=== PATIENT | female | born 1965 | race Asian ===

== ENCOUNTER 2025-01-11 05:17 | Inpatient (IN) | payer BC, SELFPAY ==
[2024-12-18 08:13] VITALS: BMI 28.6
[2024-12-18 08:59] LABS: Hematocrit 38.2 % (37.0-47.0); Hemoglobin 12.9 g/dL (12.0-16.0); Mean Corp Hgb Conc. 33.8 g/dL (33.0-37.0); Mean Corpuscular Volume 84.5 fL (81.0-99.0); Nucleated Red Blood Cells % 0 %; Platelet Count 249 10^3/uL (130-400); Red Cell Dist. Width 13.8 % (11.5-14.5)
[2024-12-18 09:07] LABS: INR 2.70; PT 28.7 Sec (11.4-14.6)
[2024-12-18 09:13] LABS: Urine Character Clear (Clear)
--- NOTE | 2024-12-18 09:33 | CM ---
Met with and Mrs. Talbert in [facility]. She states prior to admission she resides with her spouse in a three story home without any steps to enter. She states she has a full flight of steps to get to bedroom/full bathroom. She states she has a
powder room on the first floor. She states prior to admission she was independent with ambulation and adls. She state she does not have any DME in the home. She states she has a prescription plan and uses [facility]. The
discharge plan is to return home with her spouse and a home visit by the Transitional Care Nurse when medically stable.
We reviewed pre-op and post-op routines. We reviewed the shower instructions. She has the soap, written instructions and the Cardiothoracic Surgery Educational Booklet. We reviewed restrictions including lifting and driving restrictions. We
discussed a home visit by the Transitional Care Nurse. She is agreeable to a home visit. The plan is for minimally invasive mitral valve replacement on Wednesday, December 25, 2024.
[2024-12-18 09:56] LABS: ALT (SGPT) 69 U/L (0-35); AST (SGOT) 46 U/L (14-36); Albumin 4.2 g/dl (3.5-5.0); Alkaline Phosphatase 84 U/L (38-126); Blood Urea Nitrogen 19 mg/dl (7-17); Calcium 9.1 mg/dl (8.4-10.2); Carbon Dioxide 28 mmol/L (22-30); Chloride 109 mmol/L (98-107); Estimated Creatinine Clearance 64 ml/min; Glucose 86 mg/dl (70-99); Potassium 3.7 mmol/L (3.5-5.1); Sodium 146 mmol/L (135-145); Total Protein 7.0 g/dl (6.3-8.2); eGFR > 60.00
[2024-12-18 10:02] LABS: Urine Squamous Cell 16-20 /LPF (Few)
[2024-12-18 10:07] LABS: Urine Red Blood Cell 0-2 /HPF (0-2)
[2024-12-18 10:08] LABS: Urine White Cell 0-2 /HPF (0-5)
[2024-12-18 11:35] LABS: Glycohemoglobin (HgbA1c) 5.7 % (4.0-5.6)
--- NOTE | 2024-12-24 14:42 | OID.L.PAT ---
Pulmonary Nodule Pat Letter
- -
12/24/24
KUMAR MALDONADO
[address] [facility]
[place] [id number]
Emmy HEATH,
A pulmonary nodule was seen on an imaging study done by [facility]. This was reviewed by the [facility] Pulmonary Nodule Advisory Board and the following recommendation was made:
Recommendation: Follow up with a Operations Controller
If you have any questions, please do not hesitate to contact your primary care physician. If you are in need of a Physician, you can go to [email or web address] and click on 'Find a Provider'. Type 'Family Medicine' in the search.
Oncology Nurse Navigator
[facility]
[phone]
[2025-01-11] VITALS (11 sets, daily range): BP systolic 104–154; BP diastolic 63–89; BMI 29.3
[2025-01-11] MEDS: MAGNESIUM OXIDE 500 MG PO (05:53)
[2025-01-11] MEDS: BACTROBAN 2% OINTMENT 1 APPLIC NASAL ×2 (05:53→19:56)
[2025-01-11] MEDS: PROTONIX 40 MG PO (05:53)
[2025-01-11] MEDS: LOPRESSOR 25 MG PO (06:05)
--- NOTE | 2025-01-11 06:25 | W.CVOR.SURPR ---
CVOR Surgeon Immed Pre Op
-
I have examined this patient prior to performance of the scheduled procedure.
The patient's condition is unchanged from the time of the dictated/written History and
Physical and the patient is able to undergo the scheduled procedure.
[facility] ([facility]) + JAVIER E and closure of iatrogenic ASD
--- NOTE | 2025-01-11 06:30 | PTCARENOTE ---
pt admitted into CVICU room 2266. pt confirmed 2 showers at home. confirmed NPO since 0000. pt clipped and prepped for CVOR. pre-op meds given. pre-op education provided. 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
[2025-01-11 07:27] LABS: Urine Character Clear (Clear)
[2025-01-11 07:37] LABS: ACT+ - POC 115 Seconds (82-134)
--- NOTE | 2025-01-11 08:46 | CON.INTV ---
Consultation
Consultation Request
Date/Time Consultation Requested: 01/11/2025
Date/Time Consultation Performed: 01/11/2025
Medical History
-
Chief Complaint: Shortness of breath
History of Present Illness:
Patient is a 59-year-old female with known history of mitral stenosis and mitral valve regurgitation with underlying rheumatic heart disease. Patient is currently intubated sedated and unable to provide much history, will get additional detail when
she is extubated. Reportedly carries a diagnosis of hypertension, hyperlipidemia, paroxysmal atrial fibrillation, obstructive and restrictive heart disease and had progressive dyspnea and due to mitral valve disease. Postprocedure, patient was
admitted to cardiovascular ICU and boiler/chiller operator consult was requested for further input. Patient was subsequently evaluated by cardiothoracic surgery and was recommended to have mitral valve replacement along with ASD closure.
Past medical history. Hypertension, asthma, hypothyroidism, obesity, rheumatic heart disease with mitral stenosis and mitral regurgitation, paroxysmal atrial fibrillation, congestive heart failure, acquired ASD with [id number] shunt.
Surgical history. Nasal polypectomy, tubal ligation, appendectomy, but balloon mitral valvoplasty in 2023.
Family history. Patient's father had lung cancer.
Social history. Reportedly non-smoker, will get additional information once patient is extubated.
Allergies / Home Medications
Allergies
Allergy/AdvReac Type Severity Reaction Status Date / Time
latex Allergy Hives Verified 12/13/24 11:17
Penicillins Allergy Hives Verified 12/13/24 11:17
Home Medications
�Medication �Instructions �Recorded �Confirmed �Last Taken �Type
albuterol sulfate 90 mcg/actuation 1 inh inhalation PRN PRN shortness 12/13/24 01/11/25 01/10/25 History
aerosol inhaler of breath
amiodarone 200 mg tablet 200 mg PO DAILY 12/13/24 01/11/25 01/10/25 History
amlodipine 2.5 mg tablet 2.5 mg PO DAILY 12/13/24 01/11/25 01/08/25 History
fluticasone furoate 100 1 inh inhalation DAILY 12/13/24 01/11/25 01/10/25 History
mcg-vilanterol 25 mcg/dose
inhalation powder (Breo Ellipta)
furosemide 20 mg tablet 20 mg PO DAILY 12/13/24 01/11/25 01/10/25 History
levocetirizine 5 mg tablet 5 mg PO DAILY 12/13/24 01/11/25 01/05/25 History
levothyroxine 137 mcg tablet 137 mcg PO DAILY 12/13/24 01/11/25 01/10/25 History
metoprolol succinate 50 mg capsule 50 mg PO DAILY 12/13/24 01/11/25 01/10/25 History
sprinkle, ext. release 24 hr
montelukast 10 mg tablet 10 mg PO DAILY 12/13/24 01/11/25 12/29/24 History
olmesartan 40 mg tablet 40 mg PO DAILY 12/13/24 01/11/25 01/08/25 History
warfarin 2.5 mg tablet 2.5 - 5 mg PO SUWESA 12/13/24 01/11/25 01/06/25 History
warfarin 7.5 mg tablet 7.5 mg PO MOTUTHFR 12/13/24 01/11/25 Unknown History
Review of Systems
-
Unable to Obtain full review of systems at this time due to: Patient Intubation
Vitals / Labs / Diagnostic Testing
Vital Signs
Temp Pulse Resp BP Pulse Ox
97.7 F 59 16 154/89 98
01/11/25 05:31 01/11/25 06:05 01/11/25 05:31 01/11/25 06:05 01/11/25 05:31
Lab Data
12/18/24 08:22
12/18/24 08:22
Diagnostic Testing:
Physical Exam
-
HEENT: Normocephalic
Cardiovascular: S1/S2 and Other (metallic click noticed)
Respiratory: Clear and Non-Labored Respirations
GI: Soft and Non Distended
Neurology: Other (Sedated, starting to wake up )
Skin: Warm
General: Comfortable
Assessment
-
Patient is a 59-year-old female with severe mitral stenosis and mitral regurgitation along with ASD due to underlying rheumatic heart disease, s/p mitral valve replacement, closure of ASD POD # 0
Titrated off pressors per protocol, currently at MAP of 91, CVP 6, nicardipine infusion at 2.5.
ECHO reviewed with normal EF
PA catheter readings reviewed,
Management of chest tubes per primary service
Intubated, off Precedex, starting to wake up
Currently on SIMV with pressure support, 500/12/40%/5, with a pressure support of 5. Currently breathing at 12/min.
Intubated for procedure, SBT trial when patient able to spontaneously breath
ABG(s) reviewed: 7.39, 39, 147
CXR suggestive of left lower lobe atelectasis, mild
Extubate per protocol
Maintain supplement oxygen as needed
Aspiration precautions
Encouraged incentive spirometry, OOB/ambulation/early mobility
Advance diet as tolerated following extubation
GI prophylaxis: Protonix
Monitor critical I/O's
Brand/chest tube output
Hb down to 9 post-op, from 13 few months ago
Trend CBC for now
Can transfuse if indicated for Hb <7, plt <50 in surgical patients
DVT prophylaxis including SCDs
Insulin infusion per protocol
Other medical diagnoses:
- Pulmonary nodules with mediastinal/hilar lymphadenopathy. Needs out patient close monitoring.
- Renal mass, 8 mm, and T12 lytic lesion. Concerning for malignancy
- Mixed obstructive and restrictive lung disease. Needs full PFTs with Lung volumes, DLCO and Bronchodilator response assessment. Recommend out patient Pulmonary follow up.
- H/o Asthma. Start Duoneb qid and Budesonide BID for now. Will resume inhalers once patient is awake, alert and able to use inhalers
- Paroxysmal Atrial Fibrillation, had been on chronic anticoagulation with Coumadin
- ASD with L > R shunt. s/p closure-
Critical Care time 61 mins -- The patient is admitted for acute critical illness for the treatment of vital organ failure and/or prevention of further life-threatening conditions. Total care includes time spent in review of history, physical exam,
medications, hemodynamic/ventilator parameters, laboratory data, imaging and discussion with house staff, pharmacy, respiratory therapy, bus driver supervisor, and nursing.
Data:
CTA Chest/Abd/Pelvis 11/2024: No significant CT abnormality of the vessels of chest, abdomen, pelvis
Extensive ground-glass opacities in the lung bases. This likely represents pneumonia.
Precarinal/subcarinal adenopathy; there is also left hilar adenopathy. This adenopathy could be reactive secondary to the bilateral lower lobe pneumonia. Neoplastic adenopathy is not excluded.
Several small pulmonary nodules. Largest is in the left upper lobe; this measures 9 mm in diameter.
Small lytic lesions in left side of T12 vertebral body, right side of T1 vertebral body. In addition, there is generalized heterogeneous attenuation to the osseous structures.
PET/CT should be considered to further evaluate the above findings.
8 mm left lower pole renal mass that demonstrates at least partial enhancement. This is worrisome for renal cell carcinoma. Further evaluation is recommended (as perhaps with MRI or tissue sampling)
Distention of all the cardiac chambers.
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
Spirometry 11/2024: Severe obstructive airways disease without bronchodilator response. FVC decreased at 47% of predicted, suggestive of concomitant moderate restrictive airways disease. Overall, mixed obstructive and restrictive pattern noted
without bronchodilator responsiveness. Recommend testing lung volumes as well as diffusion capacity for further assessment.
Stress ECHO 10/2024: 1. Stress echo was performed for the assessment of mitral stenosis.
2. Exercise tolerance was below average and patient had shortness of breath
and fatigue with exercise.
3. With exercise there was significant increase of peak gradient and moderate
increase of the mean. Across the mitral valve. It should be noted that this
is at submaximal symptom limiting treadmill stress test
4. RV systolic pressure was not well assessed.
5. There was at least moderate anteroseptally directed mitral regurgitation
ECHO 03/2024: 1. Normal to hyperdynamic LV function with EF in the range of 70 to 75%.
2. Normal RV function and RV systolic pressure.
3. Rheumatic mitral valve with moderate to severe mitral stenosis and moderate
to severe mitral regurgitation. The mitral regurgitation has 2 separate jets
and it is eccentric.
4. Left atrium is severely dilated.
5. There is a interatrial septal defect with [id number] shunt. This is
likely the site of transseptal puncture for balloon mitral valvuloplasty
6. Trace TR and SD
[2025-01-11 09:06] LABS: B.E. - POC 0.2 mmol/L; Glucose - POC 112 mg/dl (70-99); HCO3 - POC 26 mmol/L (21-28); Hematocrit - POC 34 % PCV (37-47); Hemodilution- POC No; Hemoglobin Calculated - POC 11.6; Ionized Calcium - POC 1.14 mmol/L (1.15-1.33); Lactate - POC 0.62 mmol/L (0.36-0.75); O2 Saturation %Calculated-POC 99.7 % (94-98); PCO2 - POC 46 mmHg (35-48); PO2 - POC 201 mmHg (83-108); Potassium - POC 3.3 mmol/L (3.5-5.1); Sodium - POC 141 mmol/L (136-145); Specimen Type - POC Arterial; pH - POC 7.36 (7.35-7.45)
[2025-01-11 09:13] LABS: ACT+ - POC > 1003 Seconds (82-134)
[2025-01-11 09:29] LABS: B.E. - POC 5.2 mmol/L; Glucose - POC 145 mg/dl (70-99); HCO3 - POC 29 mmol/L (21-28); Hematocrit - POC 27 % PCV (37-47); Hemodilution- POC Yes; Hemoglobin Calculated - POC 9.3; Ionized Calcium - POC 0.97 mmol/L (1.15-1.33); Lactate - POC 0.81 mmol/L (0.36-0.75); O2 Saturation %Calculated-POC 100.0 % (94-98); PCO2 - POC 41 mmHg (35-48); PO2 - POC 453 mmHg (83-108); POC Comment CPB; Potassium - POC 3.6 mmol/L (3.5-5.1); Sodium - POC 140 mmol/L (136-145); Specimen Type - POC Arterial; pH - POC 7.47 (7.35-7.45)
[2025-01-11 10:06] LABS: B.E. - POC 4.9 mmol/L; Glucose - POC 149 mg/dl (70-99); HCO3 - POC 29 mmol/L (21-28); Hematocrit - POC 27 % PCV (37-47); Hemodilution- POC Yes; Hemoglobin Calculated - POC 9.1; Ionized Calcium - POC 0.93 mmol/L (1.15-1.33); Lactate - POC 0.70 mmol/L (0.36-0.75); O2 Saturation %Calculated-POC 100.0 % (94-98); PCO2 - POC 37 mmHg (35-48); PO2 - POC 459 mmHg (83-108); POC Comment CPB; Potassium - POC 4.3 mmol/L (3.5-5.1); Sodium - POC 141 mmol/L (136-145); Specimen Type - POC Arterial; pH - POC 7.50 (7.35-7.45)
[2025-01-11 10:23] LABS: ACT+ - POC > 1003 Seconds (82-134)
[2025-01-11 10:23] LABS: ACT+ - POC > 1003 Seconds (82-134)
[2025-01-11 10:36] LABS: B.E. - POC 3.6 mmol/L; Glucose - POC 163 mg/dl (70-99); HCO3 - POC 28 mmol/L (21-28); Hematocrit - POC 28 % PCV (37-47); Hemodilution- POC Yes; Hemoglobin Calculated - POC 9.6; Ionized Calcium - POC 0.96 mmol/L (1.15-1.33); Lactate - POC 1.35 mmol/L (0.36-0.75); O2 Saturation %Calculated-POC 100.0 % (94-98); PCO2 - POC 39 mmHg (35-48); PO2 - POC 392 mmHg (83-108); POC Comment WARM; Potassium - POC 4.1 mmol/L (3.5-5.1); Sodium - POC 144 mmol/L (136-145); Specimen Type - POC Arterial; pH - POC 7.46 (7.35-7.45)
[2025-01-11 10:47] LABS: ACT+ - POC 129 Seconds (82-134)
[2025-01-11 10:56] LABS: B.E. - POC -0.6 mmol/L; Glucose - POC 96 mg/dl (70-99); HCO3 - POC 25 mmol/L (21-28); Hematocrit - POC 25 % PCV (37-47); Hemodilution- POC Yes; Hemoglobin Calculated - POC 8.6; Ionized Calcium - POC 1.23 mmol/L (1.15-1.33); Lactate - POC 2.59 mmol/L (0.36-0.75); O2 Saturation %Calculated-POC 99.9 % (94-98); PCO2 - POC 43 mmHg (35-48); PO2 - POC 348 mmHg (83-108); POC Comment POST; Potassium - POC 3.2 mmol/L (3.5-5.1); Sodium - POC 144 mmol/L (136-145); Specimen Type - POC Arterial; pH - POC 7.37 (7.35-7.45)
[2025-01-11] MEDS: SYNTHROID PO (11:03)
--- NOTE | 2025-01-11 11:11 | W.PN.CT.SURG ---
CT Surgery Operative Note
-
CARDIAC SURGERY OPERATIVE REPORT
Preoperative Diagnosis: Mixed pathology rheumatic mitral valve disease with MS and MR status post balloon valvuloplasty
Postoperative Diagnosis: Same
Procedure(s) Performed:
1. Right mini thoracotomy with right femoral artery and vein cannulation under MITCHEL guidance
2. Chordal sparing mitral valve replacement ( On-X mechanical prosthesis)
3. Placement temporary ventricular pacing wires
4. Trans esophageal echocardiography
5. Closure of iatrogenic ASD, done primarily
Date of Surgery: 01/11/2025
Comorbidities:
1. Rheumatic mitral valve disease, mixed pathology with MR and MS status post mitral valve balloon valvuloplasty
2. Hypertension
3. Hyperlipidemia
4. Asthma
5. Congestive heart failure
6. Recent pneumonia
Attending Surgeon: Zhao Cruz MD, MS
Assistants: Rodri Palacios PA-C (present and necessary for retraction, suctioning, exposure, suture management, wound closure, etc. under my direction)
Anesthesiology: Surinder Villegas MD and Joao Nassar CRNA
Scrub and Circulating RNs: Dutch Carter RN, Gloria Webber RN
Mds Nurse: Tessa Law CCP
Anesthesia: GETA
EBL: per perfusion records
Products: none
CPB Time: 85 minutes
Aortic Cross Clamp Time: 54 minutes
Indication(s) for Procedures: This is a 59-year-old female who is being followed for mitral valve stenosis for some time. She underwent a balloon valvuloplasty with good effect for a short period of time and also developed some mitral valve
insufficiency. Recently she became more symptomatic with mixed pathology. She is otherwise very active and functional at baseline. She was offered a choice between a biological mitral valve versus a mechanical mitral valve knowing the pros and
cons of each. She ultimately decided after discussing with her family for mechanical prosthesis as she was already on Coumadin at baseline post valvuloplasty.
Mitral Valve Description: Fusion of the anterior lateral commissure routine A1 and P1 with heavy thickening and calcification of the free margin of the posterior anterior leaflets. The posterior medial commissure was moving freely. The valve
itself was fibrotic with a classic fishmouth appearance.
Implants:
1. 25/33 Trell mechanical mitral valve prosthesis, SN [id number]
Specimen:
1. Anterior mitral valve leaflet
Findings: Left ventricular ejection fraction preoperatively was 65% with no significant regional wall motion abnormalities. Following surgery EF remained the same at 60% with no new regional wall motion abnormalities. Given the appearance of her
valve, and the fibrosis, I elected to replace her valve using a chordal sparing technique. The anterior leaflet was transected and most of the thickened parts down to the shortened cords were resected. However most of the cords to each papillary
muscle head was then relocated to was the posterior annulus and plicated into the suture line. A total of 11 pledgeted 2 Ethibond sutures were placed from ventricular aspect through leaflets through annulus onto the sewing cuff and securing a 25/[address] with core knots. The mechanical valve is oriented in anti-anatomic orientation. I did attempt to view her left atrial appendage across the transverse sinus however her anatomy body habitus was quite difficult to
see clearly and so I opted not to ligate the appendage. There was an 8 mm iatrogenic ASD from her balloon valvuloplasty which was closed primarily using an over and over baseball stitch with 4-0 Prolene. There was no residual shunt at the
inclusion of the case. She did not require any inotropic support, she did not require any blood products, and she did resume a sinus rhythm after short period of VVI pacing. The prosthesis had normal excursion of both mechanical leaflets and his
typical washing jets as expected on MITCHEL. Of note, the right cord was densely scarred from likely prior manipulation.
Description of Procedure: The patient was brought to the operating room and placed supine in the table with their right side bumped up and right arm down. Arterial and central access was performed by anesthesiology. The patient was prepped from chin
to toes in the typical sterile fashion. Trans esophageal evaluation of cardiac function and all valvular structures was conducted. Before commencing, a time out was performed by all members of the team. All were in agreement with the procedure and
laterality and I proceeded. A small right groin incision was made to expose the common femoral artery and vein. A 6-8 cm right lateral muscle sparing thoracotomy sweeping the pec major muscle cephalad at the seratus anterior was performed over the
4th intercostal space verified by visualization of the hilum. A total of 40,000 units of heparin was given. The common femoral artery and vein were cannulated under transesophageal guidance using open Seldinger technique. The arterial line was
verified to have an appropriate bounce and pressure correlating with testing. Once the ACT was above 400, retrograde autologous priming was done and we commenced cardiopulmonary bypass. Target core temperature was 34�C.
Carbon dioxide was used to flood the field. The course of the phrenic nerve was identified to prevent injury. The pericardium was opened and two stay sutures were placed to facilitate a ``pericardial table.�� The oblique sinus was developed followed
by the inter atrial groove. An antegrade root vent was inserted and secured with a pursestring suture. The pump flow and mean arterial pressure were lowered and an aortic cross clamp was applied to the ascending aorta. A total of 1.2L initial dose
of Antegrade cardioplegia was delivered. We had rapid electro myocardial quiescence at 300cc of cardioplegia. The ventricle was monitored for distension by echocardiogram during this time. The left atrium was incised and enlarged. A traction suture
was placed at the right atrium left atrial junction and the roof of the left atrium was elevated. The iatrogenic ASD was closely visualized and this was oversewn with 4-0 Prolene. I did test by filling the right side of the heart and no blood was
emanating from the hole and there was no longer any air inside of the venous line. A left atrial lift retractor was placed. The mitral valve was inspected. The mitral valve was replaced as described above. The left atriotomy was closed with 3-0
prolene in a running fashion leaving a ventricular vent in place to de-air. After filling the heart, the vent was removed and the prolene was secured with a corknot. Unipolar ventricular pacing wire was placed on the base of the right ventricle.
The patient was placed into Trendelenburg position and pump flows were lowered. The clamp was slowly removed with the root vent turned on. De-airing maneuvers were performed. We started to rewarm with a target of 36.5�C.
As the heart recovered, the mitral valve prosthesis and ventricular function were assessed under transesophageal echocardiogram. The LV vent and root vents were removed. Once weaning parameters were satisfactory, cardiopulmonary bypass flow was
lowered until we were off cardiopulmonary bypass the mitral valve was inspected again. All surgical sites were inspected for hemostasis and appeared appropriate. We briefly resumed cardiopulmonary bypass to remove the root vent and the pericardium
was approximated with 2-0 ethibond sutures secured with corknots. The lines were clamped and the arterial was relocated to the venous cannula to give back volume. A test dose of protamine was delivered and patient was monitored for any adverse
reactions followed by complete protamine dosing. The femoral vessels were decannulated and repaired as indicated. One 19F Fly drain remained in the pleural space and threaded into the pericardium. There was an excellent palpable distal pulse to
the OPERATIONS SUPERVISOR 2ND SHIFT cannulation site. Local analgesia was injected to the thoracotomy. The rib space was approximated with #2 ethibond suture. The incision was closed in layers in a running fashion.
All instrument, sponge, and needle counts were confirmed to be correct x 2 at the end of the operation. The patient was transferred to the cardiac intensive care unit in critical but stable condition.
I, Dr. Zhao Cruz, was present, scrubbed for, and performed all critical elements of this procedure.
Zhao Cruz MD, MS
Cardiothoracic Surgeon
[facility]
This dictation was created using the [employer]o-tag dictation system. Please excuse any grammatical, typographical, or 'sound alike' errors
--- NOTE | 2025-01-11 11:53 | W.PN.UPDATE ---
Update Note
Progress Note Update
59 year old female electively admitted 01/11/25 for mitral replacement due to rheumatic mixed mitral stenosis/regurgitation. Had recent hospital admission for pneumonia.
IV fluids: 1400
U.O.:� 700
UF: 650
Blood:� none
Wires:� V-wires
Drops: Precedex
�
NEURO: sedated, pupils +2mm B/L
RESP: #8OT @22cm> 500/60%/14/5. Lungs clear B/L. R pleural (XXcc on arrival) chest tubes to -20cm suction. Sanguineous drainage, no air leak, no crepitus
CV: RRR +S1, S2, no S3, no�rub, no murmur. Dermabond to right anterior thoracotomy. RIJ w/O'Neals locked @ 42cm. PA 24/10; CVP 7; C.I 1.49
ABD: obese, round, soft, no BS
EXT: no edema, +2/4 DP pulses B/L, no femoral bruit, right femoral cannulation incision C.D.I. R/L radial A-lines intact
: Brand with clear yellow urine
�
A/P: POD #0 s/p chordal sparing mitral valve replacement ( On-X mechanical), primary closure of iatrogenic ASD
MITCHEL: EF�55-60%, MV mean 2mmHg
- wean and extubate
- will need instruction regarding antibiotic prophylaxis for dental and invasive procedures
- need TTE prior to discharge
# Mechanical AVR
# Atrial fibrillation-currently Sinus anastasia
- begin IV Heparin in AM @ 500u/h with goal PTT 40-60
- start Coumadin 01/12
# Sinus bradycardia
- VVI @ 80
- hold beta ruslan and prophylactic Amio
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
- resume home Breo Ellipta when extubated
- aggressive
# Hypothyroidism
- continue home levothyroxine
�
# acute surgical blood loss anemia-expected
- trend CBC
�
[2025-01-11 11:57] LABS: Glucose - Point of Care 86 mg/dl (70-99)
[2025-01-11 12:03] LABS: B.E. -0.2 mmol/L; HCO3 25.4 mmol/L (21-28); O2 Saturation % 98.8 % (94-98); PCO2 45 mmHg (32-35); PO2 125 mmHg (83-108); Potassium 3.7 mMOL/L (3.5-5.1); Sodium 139 mMOL/L (136-145)
[2025-01-11 12:07] LABS: Hematocrit 28.2 % (37.0-47.0); Hemoglobin 9.4 g/dL (12.0-16.0); Platelet Count 127 10^3/uL (130-400)
--- NOTE | 2025-01-11 12:08 | RESPNOTE ---
BS - diminshed Left>Right, Chest xray ordered. ETT pulled back from 22 at the lips to 21 at the lips. improved in aeration post.
[2025-01-11] MEDS: ANCEF 10 IV ×2 (12:17)
[2025-01-11] MEDS: LR 250 ML IV ×3 (12:17→19:15)
[2025-01-11] MEDS: NSS 500 IV (12:17)
[2025-01-11 12:18] LABS: INR 1.58; PT 19.1 Sec (11.4-14.6)
[2025-01-11 12:19] LABS: APTT 28.3 Sec (23.4-35.0)
[2025-01-11] MEDS: KCL 50 IV ×2 (12:21→14:42)
[2025-01-11 12:32] LABS: Blood Urea Nitrogen 14 mg/dl (7-17); Estimated Creatinine Clearance 70 ml/min; Glucose 80 mg/dl (70-99); Magnesium 3.5 mg/dl (1.6-2.3)
[2025-01-11 12:57] LABS: ACT+ - POC > 1003 Seconds (82-134)
[2025-01-11 12:58] LABS: Glucose - Point of Care 116 mg/dl (70-99)
--- NOTE | 2025-01-11 13:00 | PTCARENOTE ---
Patient received from CVOR s/p HP MV replacement/ASD closure. Sinus bradycardia via cm, SaO2 @ 100% on ventilator, titrating FiO2 as able. Patient deep suctioned via ETT/oral care performed, small amount blood tinged sputum noted. RIJ
Cordis/[place]-Michelle catheter, L radial arterial lines present - leveled, flushed, and calibrated w/good waveforms returned. Epicardial V-wire to pulse generator set to back up rate 50bpm, no spikes noted. R pleural chest tube placed to -20cm suction,
no air leak noted. Brand catheter to gravity. All procedural sites stable. Labs drawn, pcxr obtained, EKG performed. ETT retracted 1cm per STEPHANIE after reviewing cxr film. Initial CI 1.46, volume given. Patient set to V-paced rhythm per STEPHANIE, tolerating
well, CI increased to 1.79. See work list for full assessment, interventions performed, and intravenous infusions and titrations.
--- NOTE | 2025-01-11 13:17 | W.PN.CD ---
Addendum entered and electronically signed by Rommel Brand MD 01/11/25 15:11:
I saw and examined the patient.
The VALVE AND REGULATOR REPAIRER's note was reviewed and I agree with the note.
Status post mechanical MVR for mitral stenosis and ASD. Currently off pressors. Intubated postop. ECG with sinus bradycardia with first-degree AV block and KY of 264. Currently paced
- Extubated as per protocol
- Continue postop care as per CT surgery
- Continue to monitor rhythm and need for pacing
- Timing of initiation of Coumadin for mechanical MVR as directed by CT surgery. Note patient is chronically on amiodarone which will impact Coumadin dosing.
Original Note:
Today's Communication / Plan
-
Follow telemetry
Impression / Plan
-
I/P: 59F with hypertension, dyslipidemia, paroxysmal atrial fibrillation, hypothyroidism, and rheumatic mitral valve stenosis who presents for mitral valve replacement.
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 Aguilar
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
- Sinus bradycardia on EKG
- Post MITCHEL with preserved LVEF MG 2 mmHg
- The plan is to start warfarin 01/12/[address] surgery
- Antibiotic prophylaxis education after extubation
- Limited TTE prior to discharge
ASD s/p closure
Paroxysmal atrial fibrillation
- Sinus bradycardia VVI at 80
- She was on amiodarone preoperatively by her primary director nursery school
- Oral Anticoagulation: She was on warfarin preoperatively
- [id number]: score 2 (HTN, female gender), MVR as above
Hypertension, now with hypotension, follow
COPD, severe
Physical Exam
Vital Signs/Labs
Vital Signs
Temp Pulse Resp BP Pulse Ox
95.3 F L 80 12 154/89 99
01/11/25 13:00 01/11/25 13:06 01/11/25 13:00 01/11/25 06:05 01/11/25 13:06
01/10/25 01/11/25 01/12/25
06:59 06:59 06:59
Actual Weight 70.3 kg
01/11/25 11:51
PT 19.1 Sec (11.4-14.6) H 01/11/25 11:51
INR 1.58 01/11/25 11:51
APTT 28.3 Sec (23.4-35.0) 01/11/25 11:51
Magnesium 3.5 mg/dl (1.6-2.3) H 01/11/25 11:51
Physical Exam
Constitutional: No acute distress and Comfortable
EENT: Anicteric and Moist mucous membranes
Cardiovascular: Rhythm & rate is regular, Pedal edema is absent and S1S2 is normal
Respiratory: Lungs clear to auscul.
GI: Soft and Distention absent
Neuro/Psych: Other (Intubated and sedated)
Other: Skin (Warm and dry without edema)
Data Reviewed
-
Date of Service: January 11, 2025
EKG: Report Reviewed by me
Old Records: Reviewed
[2025-01-11] MEDS: CALCIUM GLUCONATE 100 IV (13:18)
--- NOTE | 2025-01-11 13:50 | PTCARENOTE ---
Dr. Cruz to bedside, updated to status.
[2025-01-11 14:00] LABS: Glucose - Point of Care 160 mg/dl (70-99)
[2025-01-11 14:21] LABS: B.E. -1.2 mmol/L; HCO3 23.6 mmol/L (21-28); O2 Saturation % 99.6 % (94-98); PCO2 39 mmHg (32-35); PO2 147 mmHg (83-108)
[2025-01-11 15:00] LABS: Glucose - Point of Care 148 mg/dl (70-99)
[2025-01-11] MEDS: NEURONTIN PO (15:06)
--- NOTE | 2025-01-11 15:17 | CM ---
Chart reviewed. Patient is in the OR today. Patient is independent of ADLS, lives with her in a 3 [address], 0 ELVIN, 0 DME. Plan is for the patient to return home with CT Transitional RN. CM to follow
[2025-01-11] MEDS: DUONEB 3 ML INH ×2 (15:20→19:46)
[2025-01-11 16:01] LABS: Glucose - Point of Care 157 mg/dl (70-99)
[2025-01-11 16:07] LABS: B.E. - POC 0.3 mmol/L; Blood Urea Nitrogen - POC 13 mg/dl (3-120); Chloride - POC 105 mmol/L (96-111); Creatinine - POC 0.70 mg/dl (0.3-1.0); Glucose - POC 152 mg/dl (70-99); HCO3 - POC 26 mmol/L (21-28); Hematocrit - POC 32 % PCV (37-47); Hemodilution- POC No; Hemoglobin Calculated - POC 11.0; Ionized Calcium - POC 1.23 mmol/L (1.15-1.33); Lactate - POC 1.34 mmol/L (0.36-0.75); O2 Saturation %Calculated-POC 97.9 % (94-98); PCO2 - POC 44 mmHg (35-48); PO2 - POC 106 mmHg (83-108); Potassium - POC 4.7 mmol/L (3.5-5.1); Sodium - POC 142 mmol/L (136-145); Specimen Type - POC Arterial; pH - POC 7.38 (7.35-7.45)
--- NOTE | 2025-01-11 16:13 | PTCARENOTE ---
Patient displayed spontaneous respirations over ventilator. CPAP wean initiated. No apnea noted, pt follows simple commands. EPOC obtained. Patient extubated to 6lnc w/out incident, SaO2 @ 100%. Patient dozing comfortably.
[2025-01-11 16:27] LABS: Hematocrit 32.3 % (37.0-47.0); Hemoglobin 10.7 g/dL (12.0-16.0); Platelet Count 158 10^3/uL (130-400)
[2025-01-11 17:03] LABS: Glucose - Point of Care 132 mg/dl (70-99)
[2025-01-11] MEDS: LOW STRENGTH ASPIRIN 81 MG PO (17:41)
[2025-01-11] MEDS: ANCEF 5 IV (17:41)
[2025-01-11] MEDS: TORADOL 15 MG IV (17:59)
[2025-01-11 18:04] LABS: Glucose - Point of Care 111 mg/dl (70-99)
[2025-01-11 19:04] LABS: Glucose - Point of Care 92 mg/dl (70-99)
[2025-01-11] MEDS: PULMICORT 0.5 MG INH (19:46)
[2025-01-11] MEDS: SENOKOT-S PO (19:54)
[2025-01-11] MEDS: SODIUM BICARBONATE 50 MEQ IV (19:56)
--- NOTE | 2025-01-11 20:30 | PTCARENOTE ---
Patient received resting in bed. Patient A+A+Ox3. No neurological deficits noted. No c/o headache, dizziness or lightheadedness. O2 at 3L via NC. SpO2 100%. Scheduled Neb TX administered by Respiratory Therapist. Right Pleural chest tube
intact and patent - 5 ml red drainage - Dressing intact - No air leak. Sinus Bradycardia to Sinus Rhythm. Heart rate 58-61. Blood pressure 110/63 (78). VVI 45/8/0.8 No pacer spikes noted. Patient with no c/o chest pain, pressure or
discomfort. Abdomen soft, nontender. Hypoactive bowel sounds. No BM. No c/o nausea. No vomiting. Brand catheter - Intact and patent - Yellow urine - Outputs as documented. Positive, palpable pulses. Right I.J. Cordis. [place] Michelle catheter.
Left radial arterial line. Zeroed and calibrated. C.O. 4.33 C.I. 2.53 SVR 1367 PAP 31/14 (21). CVP 9. Right lateral chest incision intact. Right anterior chest puncture site intact. Right groin puncture site intact. Patient with no c/o
back or flank pain. LR 250 ml bolus given. 1 AMP Sodium Bicarbonate administered per PA order. Assessment as documented.
[2025-01-11 21:09] LABS: Glucose - Point of Care 103 mg/dl (70-99)
[2025-01-11] MEDS: NEURONTIN 100 MG PO (21:56)
[2025-01-11] MEDS: TYLENOL 1000 MG PO (21:56)
--- NOTE | 2025-01-11 22:25 | PTCARENOTE ---
Patient tolerating sips of water and ice chips. Resting in bed. Dozing intermittently. Cardene gtt restarted at 2.5 mg/hr (12.5 ml/hr) MAP 70-90. SBP 90-130. C.O. 4.21 C.I. 2.46 SVR 1443 PAP (23) CVP 7. No further changes from
previous assessment.
[2025-01-11 23:10] LABS: Glucose - Point of Care 111 mg/dl (70-99)
[2025-01-12] VITALS (17 sets, daily range): BP systolic 100–123; BP diastolic 57–69; PULSE 61; O2SAT 91–98; BMI 30.3
--- NOTE | 2025-01-12 00:15 | PTCARENOTE ---
Patient sleeping. Cardene gtt off. Heart rate 50's. Cuff BP 100/67 (76). A-Line 121/59 (77). C.O. 3.61 C.I. 2.11 SVR 1595 PAP 27/11 (18) CVP 7. Assessment as documented.
[2025-01-12 01:02] LABS: Glucose - Point of Care 72 mg/dl (70-99)
[2025-01-12] MEDS: ANCEF 5 IV ×2 (01:10→09:16)
[2025-01-12 02:02] LABS: Glucose - Point of Care 99 mg/dl (70-99)
[2025-01-12 03:22] LABS: Glucose - Point of Care 103 mg/dl (70-99)
[2025-01-12 04:01] LABS: Glucose - Point of Care 87 mg/dl (70-99)
[2025-01-12 04:22] LABS: Hematocrit 28.7 % (37.0-47.0); Hemoglobin 9.6 g/dL (12.0-16.0); INR 1.15; Mean Corp Hgb Conc. 33.4 g/dL (33.0-37.0); Mean Corpuscular Volume 84.9 fL (81.0-99.0); PT 15.0 Sec (11.4-14.6); Platelet Count 150 10^3/uL (130-400); Red Cell Dist. Width 14.1 % (11.5-14.5)
[2025-01-12 04:31] LABS: Blood Urea Nitrogen 16 mg/dl (7-17); Calcium 8.0 mg/dl (8.4-10.2); Carbon Dioxide 25 mmol/L (22-30); Chloride 108 mmol/L (98-107); Estimated Creatinine Clearance 80 ml/min; Glucose 90 mg/dl (70-99); Magnesium 2.3 mg/dl (1.6-2.3); Potassium 4.3 mmol/L (3.5-5.1); Sodium 136 mmol/L (135-145); eGFR > 60.00
[2025-01-12] MEDS: TORADOL 15 MG IV (04:59)
[2025-01-12 05:04] LABS: Glucose - Point of Care 91 mg/dl (70-99)
--- NOTE | 2025-01-12 06:15 | PTCARENOTE ---
Patient A+A+Ox3. No neurological deficits noted. AM lab work collected and sent. EKG completed. Portable CXR completed. Patient de-lined without difficulty. Patient given CHG bath and linens changed. Brand catheter removed without difficulty
at 0600 - Due to void at 12pm. Toradol 15 mg IV for pain management. Patient OOB to chair. Standing scale weight 72.8 kg. Assessment/Interventions as documented.
[2025-01-12] MEDS: TYLENOL 1000 MG PO ×3 (06:24→22:25)
--- NOTE | 2025-01-12 06:25 | W.PN.CT ---
Addendum entered and electronically signed by Cirilo Bruner MD 01/12/25 09:09:
I saw and examined the patient.
The PA's note was reviewed and I agree with the note.
Comment:
JOEL, Money [phone]
POD#1 s/p MVR (On-X), ASD closure
No major overnight events. HR in 50s overnight, BB and amio held - currently 65 sinus.
CXR w/ slightly worse L basilar atelectasis/effusion (small), right clear
- Start heparin this AM @ 500/hr (goal PTT 60-90); coumadin 5mg tonight (current INR 1.3; goal 2.5-3.5)
- D/C A-line & SGC
- OOB/IS/ambulate later
- Maintain R pleural CT (70/145)
Original Note:
Today's Communication / Plan
-
Plan:
-No major issues overnight. Hemodynamically and neurologically intact
-Successfully extubated yesterday 01/11 @ 1615
-Off Cardene gtt, remains on insulin gtt per protocol
-Last CI 2.08, MVO2 68.3%, U/O since OR 1940 mL
-Monitor chest tube drainage: R pleural 70/145
-Amiodarone and BB on hold given postop bradycardia
-Will start heparin to Coumadin bridge for On-X mech. valve
-Cont. current meds (ASA, Levothyroxine, Duonebs, Pulmicort)
-D/C'd a-line and swan this AM @ 0500
-Will D/C quiroga catheter @ 0600
-Maintain cordis
-Maintain temporary PW (will cut before d/c home)
-Encourage use of IS
-Wean off of O2 as tolerated
-OOB into chair
-Ambulate
Assessment / Plan
-
Assessment:
-S/P Right mini thoracotomy with right femoral artery and vein cannulation under MITCHEL guidance/ Chordal sparing mitral valve replacement ( On-X mechanical prosthesis)/ Closure of iatrogenic ASD, done primarily, by Dr. Cruz, 01/11/25, pod#1
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
-Hypertension
-Hyperlipidemia
-Prediabetes (hgb A1C 5.7)
-Class 1 obesity (BMI 30)
-PAF (on Coumadin @ home)
-Hypothyroidism
-Asthma
-Pulmonary nodules with mediastinal/hilar lymphadenopathy
-LVEF 55-60% preop, 60-65% postop per intraop MITCHEL
-Diastolic congestive heart failure
-Recent pneumonia
-Mixed obstructive and restrictive lung disease
-Renal mass, 8 mm, and T12 lytic lesion (concerning for malignancy)
-S/P Nasal polypectomy
-S/P tubal ligation
-S/P appendectomy
-Acute postop blood loss/Anemia (stable, no transfusion)
-Acute postop thrombocytopenia (stable, without active bleed)
-Intraop hemoptysis (trauma from ET-Tube vs from MITCHEL)
-Acute postop atelectasis
-Acute postop hypovolemia with subsequent hypervolemia
-Acute postop bradycardia
Discussed patient care with: Cardiology, Nursing, Respiratory Therapy, Pharmacy and Care Team
Subjective
Procedure
S/P Right mini thoracotomy with right femoral artery and vein cannulation under MITCHEL guidance/ Chordal sparing mitral valve replacement ( On-X mechanical prosthesis)/ Closure of iatrogenic ASD, done primarily, by Dr. Cruz, 01/11/25
-
Date of Service: January 12, 2025
Pt c/o incisional pain, otherwise feels well
Objective Data
-
Lab Results
01/12/25 03:42
01/12/25 03:42
PT 15.0 Sec (11.4-14.6) H 01/12/25 03:42
INR 1.15 01/12/25 03:42
APTT 28.3 Sec (23.4-35.0) 01/11/25 11:51
Vital Signs
Vital Signs
Temp Pulse Resp BP Pulse Ox
98.3 F 55 21 118/69 98
01/12/25 04:00 01/12/25 05:49 01/12/25 05:32 01/12/25 04:00 01/12/25 04:44
CT Intake/Output/Weight
01/11/25 01/11/25 01/12/25
06:59 18:59 06:59
Intake Total 767.7 / 1533.5 765.8 / 1533.5
Output Total 1135 / 2085 950 / 2085
Balance -367.3 / -551.5 -184.2 / -551.5
SaO2: 98 (2L)
Physical Exam
-
General: Awake, Oriented and AOx3
Cardiovascular: Regular rate & rhythm, No Murmurs, No Rub and No Gallop
Respiratory: Decreased Breath Sounds (at bases, otherwise clear)
Sternum: Stable
Incision: Clean, Dry, Intact and Dressing Intact
Extremities: Other (+trace edema)
Data Reviewed
-
Lab Results: Results Reviewed
Medications: Active Meds Reviewed
Chest X-Ray: Report Reviewed and Image Reviewed
ECG: Report Reviewed and Image Reviewed
[2025-01-12] MEDS: SYNTHROID 137 MCG PO (06:30)
[2025-01-12 07:04] LABS: Glucose - Point of Care 98 mg/dl (70-99)
[2025-01-12] MEDS: MAGNESIUM OXIDE 500 MG PO ×2 (08:11→19:57)
[2025-01-12] MEDS: PROTONIX 40 MG PO (08:11)
[2025-01-12] MEDS: SENOKOT-S 1 TABLET PO ×2 (08:11→19:57)
[2025-01-12] MEDS: LOW STRENGTH ASPIRIN 81 MG PO (08:11)
[2025-01-12] MEDS: NEURONTIN 100 MG PO ×3 (08:11→22:25)
[2025-01-12] MEDS: BACTROBAN 2% OINTMENT 1 APPLIC NASAL ×2 (08:12→19:56)
[2025-01-12] MEDS: LIDOCAINE 4% PATCH 1 PATCH TOPICAL (08:12)
[2025-01-12] MEDS: HEPARIN 25000 UNITS/250 ML IV (08:13)
[2025-01-12] MEDS: DUONEB 3 ML INH ×4 (08:19→17:59)
[2025-01-12] MEDS: PULMICORT 0.5 MG INH ×2 (08:19→17:59)
[2025-01-12] MEDS: NSS IV (09:16)
[2025-01-12 09:19] LABS: Glucose - Point of Care 91 mg/dl (70-99)
--- NOTE | 2025-01-12 09:51 | PTCARENOTE ---
assumed care of pt from previous shift RN, sinus rhythm on tele, VSS, V wire insulated, + peripheral pulses, no edema noted. Lungs diminished, pox 98% on 2L NC, coughing and deep breathing encouraged. +bs, denies nausea, voids spontaneously. cordis
and PIV flush easily. CT x1 w minimal amount of drainage. pt medicated for pain. plan of care reviewed and questions encouraged.
--- NOTE | 2025-01-12 11:36 | W.PN.CD ---
Today's Communication / Plan
-
Patient remains in sinus rhythm with first-degree block. No other arrhythmias on telemetry.
Anticoagulation with Coumadin and heparin being initiated by CT surgery
Monitor postop anemia
Continue postop care as directed by CT surgery
Impression / Plan
-
I/P: 59F with hypertension, dyslipidemia, paroxysmal atrial fibrillation, hypothyroidism, and rheumatic mitral valve stenosis who presents for mitral valve replacement.
Outpatient wrapping clerk: Dr. Aguilar
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
- Telemetry with sinus rhythm. No significant arrhythmias. No longer being paced
-sinus bradycardia first-degree AV block with TN interval of 222 on EKG 01/12/2025
- Post MITCHEL with preserved LVEF MG 2 mmHg
- Anticoagulation with Coumadin heparin being initiated by CT surgery
- Limited TTE prior to discharge
ASD s/p closure
Paroxysmal atrial fibrillation
- Sinus bradycardia VVI at 80
- She was on amiodarone preoperatively by her primary wrapping clerk
- Oral Anticoagulation: She was on warfarin preoperatively
- [id number]: score 2 (HTN, female gender), MVR as above
Hypertension, now with hypotension, follow
COPD, severe
Physical Exam
Vital Signs/Labs
Vital Signs
Temp Pulse Resp BP Pulse Ox
98.2 F 62 16 115/69 89
01/12/25 08:11 01/12/25 11:29 01/12/25 11:29 01/12/25 08:11 01/12/25 11:29
01/11/25 01/12/25 01/13/25
06:59 06:59 06:59
Actual Weight 70.3 kg 72.8 kg
01/12/25 03:42
01/12/25 03:42
PT 15.0 Sec (11.4-14.6) H 01/12/25 03:42
INR 1.15 01/12/25 03:42
APTT 28.3 Sec (23.4-35.0) 01/11/25 11:51
Magnesium 2.3 mg/dl (1.6-2.3) 01/12/25 03:42
Physical Exam
Constitutional: No acute distress
Cardiovascular: Rhythm & rate is regular and Other (Mechanical S1)
Respiratory: Wheeze Absent and Rhonchi Absent
GI: Soft and Non tender
Neuro/Psych: Alert
Data Reviewed
-
Date of Service: January 12, 2025
Medical Decision Making: Reviewed Test Results
EKG: Tracing Personally Visualized and interpreted
X-Ray/CT/US/MRI/NUC/PET: Report Reviewed by me
Medical Tests (PFT, Pathology etc): Report Reviewed by me
Labs: Labs Reviewed by me
--- NOTE | 2025-01-12 11:41 | PTCARENOTE ---
pt tolerated working w cardiac rehab, VSS, CT w minimal amount of drainage.
[2025-01-12 12:40] LABS: Glucose - Point of Care 112 mg/dl (70-99)
[2025-01-12] MEDS: FERRLECIT 110 MG IV (13:57)
[2025-01-12 14:23] LABS: APTT 37.3 Sec (23.4-35.0)
--- NOTE | 2025-01-12 15:25 | W.PN.ANS.POP ---
Anesthesia Post Operative
- Anesthesia Post Op Note
Vital Signs Stable-See Nursing Note: Yes
Airway Patent: Yes
Adequate Pain Control: Yes
Change in Mental Status: No
Current Postoperative Nausea & Vomiting: No
Anesthesia Complications: No
General Anesthetic Recall: No
Unplanned Admission: No
Post Op Hydration Adequate: Yes
--- NOTE | 2025-01-12 15:37 | PTCARENOTE ---
family at bedside, updated. assisted pt w walking in the hallway, tolerated well.
--- NOTE | 2025-01-12 15:40 | W.PN.INTV ---
Today's Communication / Plan
Recommendations
- Incentive spirometry, activity as tolerated
- Continue scheduled DuoNeb and budesonide, anticipate transition to inhalers on 01/13
- Needs outpatient follow-up with her lobby concierge at [facility]
Assessment
-
Patient is a 59-year-old female with severe mitral stenosis and mitral regurgitation along with ASD due to underlying rheumatic heart disease, s/p mitral valve replacement, closure of ASD POD # 1
Titrated off pressors per protocol, MAP normal, not requiring any pressor infusion
ECHO reviewed with normal EF
PA catheter removed
Management of chest tubes per primary service
Heparin drip initiated, Coumadin also resumed
Patient is now extubated, saturating well on nasal cannula at 4 L. Work of breathing normal
CXR suggestive of left lower lobe atelectasis, mild, somewhat progressed from 01/11
Maintain supplement oxygen as needed
Aspiration precautions
Encouraged incentive spirometry, OOB/ambulation/early mobility
Advance diet as tolerated following extubation
GI prophylaxis: Protonix
Monitor critical I/O's
Brand/chest tube output
Hb down to 9 post-op, from 13 few months ago
Trend CBC for now
Can transfuse if indicated for Hb <7, plt <50 in surgical patients
DVT prophylaxis including SCDs
Insulin infusion per protocol
Other medical diagnoses:
- Pulmonary nodules with mediastinal/hilar lymphadenopathy. Needs out patient close monitoring. Patient reports that she follows up with the lobby concierge at [facility] and is aware of pulmonary nodules and PET scan as outpatient.
- Renal mass, 8 mm, and T12 lytic lesion. Concerning for malignancy. Needs ongoing workup as outpatient.
- Mixed obstructive and restrictive lung disease. Needs full PFTs with Lung volumes, DLCO and Bronchodilator response assessment. Recommend resuming follow-up with her lobby concierge at [facility].
- H/o Asthma. Continue Duoneb qid and Budesonide BID for now. Encourage incentive spirometry considering left lower lobe atelectasis
- Paroxysmal Atrial Fibrillation, had been on chronic anticoagulation with Coumadin, resumed
- ASD with L > R shunt. s/p closure
Critical Care time 41 mins -- The patient is admitted for acute critical illness for the treatment of vital organ failure and/or prevention of further life-threatening conditions. Total care includes time spent in review of history, physical exam,
medications, hemodynamic/ventilator parameters, laboratory data, imaging and discussion with house staff, pharmacy, respiratory therapy, six sigma project manager, and nursing.
Data:
CTA Chest/Abd/Pelvis 11/2024: No significant CT abnormality of the vessels of chest, abdomen, pelvis
Extensive ground-glass opacities in the lung bases. This likely represents pneumonia.
Precarinal/subcarinal adenopathy; there is also left hilar adenopathy. This adenopathy could be reactive secondary to the bilateral lower lobe pneumonia. Neoplastic adenopathy is not excluded.
Several small pulmonary nodules. Largest is in the left upper lobe; this measures 9 mm in diameter.
Small lytic lesions in left side of T12 vertebral body, right side of T1 vertebral body. In addition, there is generalized heterogeneous attenuation to the osseous structures.
PET/CT should be considered to further evaluate the above findings.
8 mm left lower pole renal mass that demonstrates at least partial enhancement. This is worrisome for renal cell carcinoma. Further evaluation is recommended (as perhaps with MRI or tissue sampling)
Distention of all the cardiac chambers.
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
Spirometry 11/2024: Severe obstructive airways disease without bronchodilator response. FVC decreased at 47% of predicted, suggestive of concomitant moderate restrictive airways disease. Overall, mixed obstructive and restrictive pattern noted
without bronchodilator responsiveness. Recommend testing lung volumes as well as diffusion capacity for further assessment.
Stress ECHO 10/2024: 1. Stress echo was performed for the assessment of mitral stenosis.
2. Exercise tolerance was below average and patient had shortness of breath
and fatigue with exercise.
3. With exercise there was significant increase of peak gradient and moderate
increase of the mean. Across the mitral valve. It should be noted that this
is at submaximal symptom limiting treadmill stress test
4. RV systolic pressure was not well assessed.
5. There was at least moderate anteroseptally directed mitral regurgitation
ECHO 03/2024: 1. Normal to hyperdynamic LV function with EF in the range of 70 to 75%.
2. Normal RV function and RV systolic pressure.
3. Rheumatic mitral valve with moderate to severe mitral stenosis and moderate
to severe mitral regurgitation. The mitral regurgitation has 2 separate jets
and it is eccentric.
4. Left atrium is severely dilated.
5. There is a interatrial septal defect with [id number] shunt. This is
likely the site of transseptal puncture for balloon mitral valvuloplasty
6. Trace TR and HI
Subjective Dataa
Subjective Data
Date of Service:
Date of Service: January 12, 2025
Subjective:
Patient comfortably sitting in chair in no acute distress.
Review of Systems
Genitourinary: Other (All 14 systems reviewed and negative except as stated above in the history of present illness.)
Objective Data
Data Reviewed
Vital Signs / I&O / Oxygen:
Vital Signs
Temp Pulse Resp BP Pulse Ox
98.2 F 65 16 117/62 97
01/12/25 15:27 01/12/25 15:27 01/12/25 15:27 01/12/25 15:27 01/12/25 15:27
Intake and Output
01/11/25 01/12/25 01/13/25
06:59 06:59 06:59
Intake Total 1533.5 / 1533.5 55 / 55
Output Total 2084 310 / 310
Balance -551.5 / -551.5 -255 / -255
SaO2 [CPAP] 100
SaO2 [SIMV] 100
SaO2 97
Nasal Cannula flow liters per 2
minute
Physical Exam
General: Comfortable
HEENT: Normocephalic
Cardiovascular: S1-S2
Respiratory: Clear
GI: Soft and Non Distended
Neurology: Awake and Alert
Skin: Warm
Labs/Micro/Reports
Lab Data
01/12/25 03:42
01/12/25 03:42
Laboratory Results
01/12/25 01/12/25
03:42 14:00
PT 15.0 H
INR 1.15
APTT 37.3 H
[2025-01-12] MEDS: COUMADIN 5 MG PO (17:24)
[2025-01-12] MEDS: ROXICODONE 5 MG PO ×2 (18:16→22:26)
[2025-01-12] MEDS: REMOVE LIDOCAINE PATCH 1 PATCH REMOVE (19:57)
--- NOTE | 2025-01-12 20:30 | PTCARENOTE ---
Patient received OOB in chair watching television. Patient A+A+Ox3. No neurological deficits noted. Patient assisted to bathroom with assist x1. Steady gait. No c/o headache, dizziness or lightheadedness. Patient voided 150 ml yellow urine.
Washed face. Brushed teeth. Patient assisted to bed. O2 at 2L via NC HS. SpO2 96%. Right Pleural chest tube intact - 10 ml red drainage - No air leak - Dressing intact. Sinus Rhythm. Heart rate 60's. Blood pressure 112/57 (73). VVI 45/8/0.8
Patient with no c/o chest pain, pressure or discomfort. Abdomen soft, nontender. Normoactive bowel sounds. No BM. No c/o nausea. No vomiting. Generalized trace edema. Positive, palpable pulses. Right lateral incision intact. Right anterior
chest puncture intact. Right I.J. Cordis. IV Heparin gtt. Assessment as documented.
[2025-01-12 22:01] LABS: APTT 103.4 Sec (23.4-35.0)
--- NOTE | 2025-01-12 23:00 | PTCARENOTE ---
Patient's PTT 103.4. PA for CT Surgery, Denver Muñiz PA-C, made aware. IV Heparin rate decreased. IV Heparin now infusing at 600 units/hr (6ml/hr) per PA. Roxicodone 5mg PO for pain management. Patient resting in bed. Assessment as
documented.
[2025-01-13] VITALS (17 sets, daily range): BP systolic 77–108; BP diastolic 46–57; BMI 30.6
[2025-01-13] MEDS: DILAUDID 0.25 MG IV (00:14)
[2025-01-13] MEDS: NSS 500 IV (04:00)
[2025-01-13] MEDS: ROXICODONE 5 MG PO (04:02)
[2025-01-13] MEDS: VENTOLIN NEBULES 2.5 MG INH (04:23)
[2025-01-13 04:44] LABS: Hematocrit 25.1 % (37.0-47.0); Hemoglobin 8.2 g/dL (12.0-16.0); Mean Corp Hgb Conc. 32.7 g/dL (33.0-37.0); Mean Corpuscular Volume 88.1 fL (81.0-99.0); Platelet Count 132 10^3/uL (130-400); Red Cell Dist. Width 14.6 % (11.5-14.5)
--- NOTE | 2025-01-13 04:45 | PTCARENOTE ---
Patient with c/o increasing pain - 5/10 pain right chest, right upper back, right middle back regions - Roxicodone 5 mg PO given. Patient c/o SOB. SpO2 2L O2 92%. O2 increased to 3L. PA for CT Surgery, Denver Muñiz PA-C, made aware.
Respiratory therapist notified - Ventolin PRN Neb TX administered by Respiratory therapist. I.S. 500 ml. AM lab work collected and sent. 5ml red drainage from Right Pleural chest tube. Portable CXR this AM. Assessment/Interventions as
documented.
[2025-01-13 04:55] LABS: INR 1.15; PT 15.0 Sec (11.4-14.6)
[2025-01-13 04:56] LABS: APTT 48.6 Sec (23.4-35.0)
--- NOTE | 2025-01-13 04:58 | W.PN.CT ---
Addendum entered and electronically signed by Cirilo Bruner MD 01/13/25 08:50:
I saw and examined the patient.
The PA's note was reviewed and I agree with the note.
Comment:
POD#2
No major overnights events. AVSS. 3L NC. GTTS: heparin. CT: , no air leak
CXR: low lung volumes w/ bibasilar atelectasis, no sig effusions.
- D/C CT
- Strongly encourage deep respiration, IS 10x/hr, chest PT, OOB
- Diuresis today (creat 0.8)
- Hgb 8.2 (from 9.6) - likely dilutional
- Start low-dose BB
- Continue heparin gtt. INR 1.15. Coumadin 5mg tonight
Original Note:
Today's Communication / Plan
-
Plan:
-No major issues overnight. Hemodynamically and neurologically intact
-On Heparin to coumadin bridge, Heparin currently @ 650 units/hr, goal PTT of 60-90, INR 1.15 after 5mg Coumadin yesterday
-Amiodarone and BB on hold given postop bradycardia. Current rhythm is NSR @ 74 bpm
-Consider d/c of chest tube: R pleural 20/40
-Cont. current meds (ASA, Levothyroxine, Duonebs, Pulmicort)
-Monitor h/h 8.2/25.1 down from 9.6/28.7, likely hemodiluted, wt is up 2kg from preop, check wt today
-Will diurese with Lasix and replete electrolytes
-Maintain cordis another day
-Maintain temporary PW (will cut before d/c home)
-Encourage use of IS
-Wean off of O2 as tolerated
-OOB into chair
-Ambulate
Assessment / Plan
-
Assessment:
-S/P Right mini thoracotomy with right femoral artery and vein cannulation under MITCHEL guidance/ Chordal sparing mitral valve replacement ( On-X mechanical prosthesis)/ Closure of iatrogenic ASD, done primarily, by Dr. Cruz, 01/11/25, pod#2
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
-Hypertension
-Hyperlipidemia
-Prediabetes (hgb A1C 5.7)
-Class 1 obesity (BMI 30)
-PAF (on Coumadin @ home)
-Hypothyroidism
-Asthma
-Pulmonary nodules with mediastinal/hilar lymphadenopathy
-LVEF 55-60% preop, 60-65% postop per intraop MITCHEL
-Diastolic congestive heart failure
-Recent pneumonia
-Mixed obstructive and restrictive lung disease
-Renal mass, 8 mm, and T12 lytic lesion (concerning for malignancy)
-S/P Nasal polypectomy
-S/P tubal ligation
-S/P appendectomy
-Acute postop blood loss/Anemia (stable, no transfusion)
-Acute postop thrombocytopenia (stable, without active bleed)
-Intraop hemoptysis (trauma from ET-Tube vs from MITCHEL)
-Acute postop atelectasis
-Acute postop hypovolemia with subsequent hypervolemia
-Acute postop bradycardia
Discussed patient care with: Cardiology, Nursing, Respiratory Therapy, Pharmacy and Care Team
Subjective
Procedure
S/P Right mini thoracotomy with right femoral artery and vein cannulation under MITCHEL guidance/ Chordal sparing mitral valve replacement ( On-X mechanical prosthesis)/ Closure of iatrogenic ASD, done primarily, by Dr. Cruz, 01/11/25
-
Date of Service: January 13, 2025
Pt c/o pleuritic chest pain, otherwise feels well
Objective Data
-
Lab Results
01/13/25 04:27
PT Cancelled 01/13/25 04:27
INR Cancelled 01/13/25 04:27
APTT 103.4 Sec (23.4-35.0) H 01/12/25 21:35
Vital Signs
Vital Signs
Temp Pulse Resp BP Pulse Ox
98.8 F 72 20 93/50 92
01/13/25 04:00 01/13/25 04:42 01/13/25 04:25 01/13/25 04:42 01/13/25 04:42
CT Intake/Output/Weight
01/12/25 01/12/25 01/13/25
06:59 18:59 06:59
Intake Total 765.8 / 1533.5 55 / 459 404 / 459
Output Total 950 / 2085 320 / 635 315 / 635
Balance -184.2 / -551.5 -265 / -176 89 / -176
SaO2: 92 (3L)
Physical Exam
-
General: Awake, Oriented and AOx3
Cardiovascular: Regular rate & rhythm, No Murmurs, No Rub and No Gallop
Respiratory: Decreased Breath Sounds (at bases, with mild bibasilar crackles )
Sternum: Stable
Incision: Clean, Dry, Intact and Dressing Intact
Extremities: Other (+trace edema)
Data Reviewed
-
Lab Results: Results Reviewed
Medications: Active Meds Reviewed
Chest X-Ray: Report Reviewed and Image Reviewed
ECG: Report Reviewed and Image Reviewed
[2025-01-13] MEDS: SYNTHROID 137 MCG PO (05:09)
[2025-01-13] MEDS: TYLENOL 1000 MG PO ×3 (05:09→22:25)
[2025-01-13 05:10] LABS: Blood Urea Nitrogen 30 mg/dl (7-17); Calcium 7.8 mg/dl (8.4-10.2); Carbon Dioxide 28 mmol/L (22-30); Chloride 106 mmol/L (98-107); Estimated Creatinine Clearance 71 ml/min; Glucose 141 mg/dl (70-99); Magnesium 2.2 mg/dl (1.6-2.3); Potassium 3.9 mmol/L (3.5-5.1); Sodium 134 mmol/L (135-145); eGFR > 60.00
[2025-01-13] MEDS: CALCIUM GLUCONATE 130 MG IV (05:30)
[2025-01-13] MEDS: KCL 40 MEQ PO ×2 (06:37→08:16)
[2025-01-13] MEDS: TORADOL 15 MG IV (06:37)
[2025-01-13] MEDS: PULMICORT 0.5 MG INH ×2 (07:26→18:58)
[2025-01-13] MEDS: DUONEB 3 ML INH ×4 (07:26→18:58)
[2025-01-13] MEDS: MAGNESIUM OXIDE 500 MG PO ×2 (08:15→19:51)
[2025-01-13] MEDS: LOPRESSOR 12.5 MG PO (08:15)
[2025-01-13] MEDS: LOW STRENGTH ASPIRIN 81 MG PO (08:15)
[2025-01-13] MEDS: NEURONTIN 100 MG PO ×3 (08:15→22:25)
[2025-01-13] MEDS: PROTONIX 40 MG PO (08:15)
[2025-01-13] MEDS: LASIX 40 MG IV (08:16)
[2025-01-13] MEDS: BACTROBAN 2% OINTMENT 1 APPLIC NASAL ×2 (08:16→19:51)
[2025-01-13] MEDS: LIDOCAINE 4% PATCH 1 PATCH TOPICAL (08:16)
--- NOTE | 2025-01-13 08:38 | W.PN.CD ---
Today's Communication / Plan
-
Hemodynamically stable. Heart rhythms remained stable.
Some wheezing on exam in this patient who has a COPD just received treatment. Appears she needs to raise some secretions. Chest tube being pulled today as per surgery.
Monitor postop anemia closely hemoglobin 8.2. Particularly monitor in this patient who is on heparin with with bridging to Coumadin
Impression / Plan
-
I/P: 59F with hypertension, dyslipidemia, paroxysmal atrial fibrillation, hypothyroidism, and rheumatic mitral valve stenosis who presents for mitral valve replacement.
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
Rheumatic mixed mitral stenosis/regurgitation s/p mechanical aortic valve replacement ( [place] mechanical mitral valve prosthesis)
- Telemetry with sinus rhythm. No significant arrhythmias. No longer being paced
-sinus bradycardia first-degree AV block with IN interval of 222 on EKG 01/12/2025
- Post MITCHEL with preserved LVEF MG 2 mmHg
- Anticoagulation with Coumadin heparin being initiated by CT surgery
- Limited TTE prior to discharge
Postop anemia. Hemoglobin 8.2.
- Monitor closely particularly in this patient whose being maintained on anticoagulation.
ASD s/p closure
Paroxysmal atrial fibrillation
- Sinus bradycardia VVI at 80
- She was on amiodarone preoperatively by her primary hotel [employer] floorperson
- Oral Anticoagulation: She was on warfarin preoperatively
- [id number]: score 2 (HTN, female gender), MVR as above
Hypertension, now with hypotension, follow
COPD, severe
- Some wheezing on exam.
Physical Exam
Vital Signs/Labs
Vital Signs
Temp Pulse Resp BP Pulse Ox
98.8 F 68 18 108/53 95
01/13/25 04:00 01/13/25 07:30 01/13/25 07:30 01/13/25 06:01 01/13/25 07:30
01/12/25 01/13/25 01/14/25
06:59 06:59 06:59
Actual Weight 72.8 kg 73.4 kg
01/13/25 04:27
01/13/25 04:27
PT Cancelled 01/13/25 04:27
INR Cancelled 01/13/25 04:27
APTT 48.6 Sec (23.4-35.0) H 01/13/25 04:26
Magnesium 2.2 mg/dl (1.6-2.3) 01/13/25 04:27
Physical Exam
Constitutional: No acute distress
Cardiovascular: Rhythm & rate is regular and Other (Systolic murmur and mechanical S1)
Respiratory: Rhonchi Absent and Wheeze Present
GI: Soft and Non tender
Neuro/Psych: Alert
Data Reviewed
-
Date of Service: January 13, 2025
Medical Decision Making: Reviewed Test Results
Echo: Report Reviewed by me
Medical Tests (PFT, Pathology etc): Report Reviewed by me
Labs: Labs Reviewed by me
[2025-01-13] MEDS: SENOKOT-S PO ×2 (08:43→19:52)
--- NOTE | 2025-01-13 09:30 | PTCARENOTE ---
assumed care of pt from previous shift RN, sinus rhythm on tele, VSS, V wire insulated, + peripheral pulses, no edema noted. Lungs diminished, pox 98% on 2L NC, coughing and deep breathing encouraged. +bs, denies nausea, voids spontaneously. cordis
and PIV flush easily. CT x1 removed as ordered. plan of care reviewed and questions encouraged.
--- NOTE | 2025-01-13 10:36 | W.PN.PUL3 ---
Today's Communication / Plan
-
- Resume montelukast 10 mg daily
- Continue nebulizers for now, can switch to Breo at the time of discharge
- Resume outpatient follow-up with her furnace attendant at [facility]
- Pulmonary service will sign off, please call as needed
Assessment
-
Patient is a 59-year-old female with severe mitral stenosis and mitral regurgitation along with ASD due to underlying rheumatic heart disease, s/p mitral valve replacement, closure of ASD POD # 2
Titrated off pressors per protocol, MAP normal, not requiring any pressor infusion
ECHO reviewed with normal EF
PA catheter removed
Chest tube removed
Heparin drip initiated, Coumadin also resumed
Patient is now extubated, saturating well on nasal cannula. Work of breathing normal
CXR suggestive of left lower lobe atelectasis, mild, somewhat progressed from 01/11
Maintain supplement oxygen as needed
Aspiration precautions
Encouraged incentive spirometry, OOB/ambulation/early mobility
Advance diet as tolerated following extubation
GI prophylaxis: Protonix
Other medical diagnoses:
- Pulmonary nodules with mediastinal/hilar lymphadenopathy. Needs out patient close monitoring. Patient reports that she follows up with the furnace attendant at [facility] and is aware of pulmonary nodules and PET scan as outpatient.
- Renal mass, 8 mm, and T12 lytic lesion. Concerning for malignancy. Needs ongoing workup as outpatient. Updated CT surgery service regarding need for monitoring of these incidental findings as outpatient. I also printed the report, highlighted
the areas and given to the patient. Called patient's daughter Sarah Kerr and updated her about these findings and need for outpatient close workup.
- Mixed obstructive and restrictive lung disease. Needs full PFTs with Lung volumes, DLCO and Bronchodilator response assessment. Recommend resuming follow-up with her furnace attendant at [facility].
- H/o Asthma. Continue Duoneb qid and Budesonide BID for now. Encourage incentive spirometry considering left lower lobe atelectasis. Resume montelukast 10 mg nightly. Patient can resume Breo at the time of discharge.
- Paroxysmal Atrial Fibrillation, had been on chronic anticoagulation with Coumadin, resumed
- ASD with L > R shunt. s/p closure
Subjective Data
-
Date of Service:
Date of Service: January 13, 2025
Subjective:
Patient comfortably sitting in chair in no acute distress, chest tube removed
Review of Systems
Genitourinary: Other (All 14 systems reviewed and negative except as stated above in the history of present illness.)
Objective Data
Data Reviewed
Vital Signs / I&O / Oxygen:
Vital Signs
Temp Pulse Resp BP Pulse Ox
99.1 F 71 20 96/54 96
01/13/25 08:19 01/13/25 08:19 01/13/25 08:19 01/13/25 08:19 01/13/25 09:56
Intake and Output
01/12/25 01/13/25 01/14/25
06:59 06:59 06:59
Intake Total 1533.5 / 1533.5 621.5 / 621.5 116.5 / 116.5
Output Total 2085 / 2085 635 / 635 300 / 300
Balance -551.5 / -551.5 -13.5 / -13.5 -183.5 / -183.5
SaO2 [CPAP] 100
SaO2 [SIMV] 100
SaO2 96
Nasal Cannula flow liters per 2
minute
Physical Exam
General: Comfortable
HEENT: Normocephalic
Cardiovascular: S1-S2 and Peripheral Edema
Respiratory: Clear
GI: Soft and Non Distended
Neurology: Awake and Alert
Skin: Warm
Labs/Micro/Reports
Lab Data
01/13/25 04:27
01/13/25 04:27
Laboratory Results
0701/12/25 01/13/25
14:00 21:35 04:26
PT 15.0 H
INR 1.15
APTT 37.3 H 103.4 H 48.6 H
01/13/25
04:27
PT Cancelled
INR Cancelled
APTT
[2025-01-13 10:42] LABS: APTT 48.5 Sec (23.4-35.0)
--- NOTE | 2025-01-13 12:23 | PTCARENOTE ---
hypotensive, CT STEPHANIE notified. Beta ruslan placed back on hold.
[2025-01-13] MEDS: FERRLECIT 110 MG IV (13:58)
[2025-01-13] MEDS: SINGULAIR 10 MG PO (16:11)
[2025-01-13] MEDS: COUMADIN 5 MG PO (16:11)
[2025-01-13] MEDS: ROBITUSSIN 200 MG PO ×3 (16:12→22:25)
--- NOTE | 2025-01-13 16:24 | PTCARENOTE ---
VSS, coughing and deep breathing encouraged.
[2025-01-13 17:01] LABS: APTT 115.6 Sec (23.4-35.0)
--- NOTE | 2025-01-13 17:11 | PTCARENOTE ---
PTT result reviewed w CT STEPHANIE, heparin gtt adjusted as ordered.
[2025-01-13] MEDS: REMOVE LIDOCAINE PATCH 1 PATCH REMOVE (19:51)
--- NOTE | 2025-01-13 20:00 | PTCARENOTE ---
Assumed care at 1900, Alert and oriented, OOB to chair, ambulated to bathroom. Follows commands, sinus rhythm on monitor, V wire insulated, + peripheral pulses, no edema noted. Lungs diminished, pox 98% on 2L NC,Productive Cough, coughing and deep
breathing encouraged. +bs, denies nausea, voids spontaneously. cordis and PIV WNL. VSS, see worklist for detailed assesment findings.
[2025-01-13 23:45] LABS: APTT 102.6 Sec (23.4-35.0)
--- NOTE | 2025-01-13 23:58 | PTCARENOTE ---
patient resting, denies pain, PTT drawn-102, Provider norified, ill maintain current rate on heparin.
[2025-01-14] VITALS (13 sets, daily range): BP systolic 85–131; BP diastolic 50–65; PULSE 74; O2SAT 93–94; BMI 31.0
[2025-01-14] MEDS: HEPARIN 25000 UNITS/250 ML IV (00:13)
--- NOTE | 2025-01-14 05:14 | W.PN.CT ---
Today's Communication / Plan
-
Plan:
-No major issues overnight. Hemodynamically and neurologically intact
-On Heparin to coumadin bridge, Heparin currently @ 650 units/hr, goal PTT of 60-90, INR 1.35, was 1.15 yesterday, got 5mg Coumadin yesterday
-Amiodarone and BB on hold given postop bradycardia. Current rhythm is NSR @ 67 bpm
-Did not tolerate low dose BB yesterday 01/13, became bradycardic and hypotensive
-Cont. current meds (ASA, Levothyroxine, Duonebs, Pulmicort)
-Monitor h/h 8.0/24.8, was 8.2/25.1 yesterday, likely hemodiluted, wt is up 3kg from preop
-Will diurese with Lasix and replete electrolytes
-D/C cordis today
-Maintain temporary PW (will cut before d/c home)
-Encourage use of IS
-Wean off of O2 as tolerated, currently on L, O2 sats 95-96%, poor efforts on IS ( max 500 mL)
-Cont. pulmonary toilet
-OOB into chair
-Ambulate
-Home in 1-2 days
Assessment / Plan
-
Assessment:
-S/P Right mini thoracotomy with right femoral artery and vein cannulation under MITCHEL guidance/ Chordal sparing mitral valve replacement ( On-X mechanical prosthesis)/ Closure of iatrogenic ASD, done primarily, by Dr. Cruz, 01/11/25, pod#3
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
-Hypertension
-Hyperlipidemia
-Prediabetes (hgb A1C 5.7)
-Class 1 obesity (BMI 30)
-PAF (on Coumadin @ home)
-Hypothyroidism
-Asthma
-Pulmonary nodules with mediastinal/hilar lymphadenopathy
-LVEF 55-60% preop, 60-65% postop per intraop MITCHEL
-Diastolic congestive heart failure
-Recent pneumonia
-Mixed obstructive and restrictive lung disease
-Renal mass, 8 mm, and T12 lytic lesion (concerning for malignancy)
-S/P Nasal polypectomy
-S/P tubal ligation
-S/P appendectomy
-Acute postop blood loss/Anemia (stable, no transfusion)
-Acute postop thrombocytopenia (stable, without active bleed)
-Intraop hemoptysis (trauma from ET-Tube vs from MITCHEL)
-Acute postop atelectasis
-Acute postop hypovolemia with subsequent hypervolemia
-Acute postop bradycardia
Discussed patient care with: Cardiology, Nursing, Respiratory Therapy, Pharmacy and Care Team
Subjective
Procedure
S/P Right mini thoracotomy with right femoral artery and vein cannulation under MITCHEL guidance/ Chordal sparing mitral valve replacement ( On-X mechanical prosthesis)/ Closure of iatrogenic ASD, done primarily, by Dr. Cruz, 01/11/25
-
Date of Service: January 14, 2025
Pt c/o mild incisional pain and cough, otherwise feels well
Objective Data
-
PT Cancelled 01/13/25 04:27
INR Cancelled 01/13/25 04:27
APTT 102.6 Sec (23.4-35.0) H 01/13/25 23:15
Vital Signs
Vital Signs
Temp Pulse Resp BP Pulse Ox
99.8 F 66 20 98/52 94
01/13/25 22:00 01/14/25 03:00 01/13/25 22:00 01/14/25 00:08 01/14/25 03:00
CT Intake/Output/Weight
01/13/25 01/13/25 01/14/25
06:59 18:59 06:59
Intake Total 566.5 / 621.5 116.5 / 352.5 236.0 / 352.5
Output Total 315 / 635 450 / 500 50 / 500
Balance 251.5 / -13.5 -333.5 / -147.5 186.0 / -147.5
SaO2: 94 (1L)
Physical Exam
-
General: Awake, Oriented and AOx3
Cardiovascular: Regular rate & rhythm, No Murmurs and No Gallop
Respiratory: Decreased Breath Sounds (with mild expiratory wheezing and basilar crackles)
Sternum: Stable
Incision: Clean, Dry, Intact and Dressing Intact
Extremities: Other (+trace edema)
Data Reviewed
-
Lab Results: Results Reviewed
Medications: Active Meds Reviewed
Chest X-Ray: Report Reviewed and Image Reviewed
ECG: Report Reviewed and Image Reviewed
--- NOTE | 2025-01-14 05:42 | PTCARENOTE ---
Patien tOOB to bathroom, LARA, desaturated down 82% when on RA , remains on 1L NC 93 %. CT tube dressing was saturated at 500am, dressing changed no sign of bleeding at this time. IS effort minium 500. remains on Heparin drip. PTT and other morning
labs drawn
[2025-01-14 05:52] LABS: INR 1.35; PT 17.0 Sec (11.4-14.6)
[2025-01-14 05:53] LABS: APTT 68.5 Sec (23.4-35.0)
[2025-01-14 06:02] LABS: Hematocrit 24.8 % (37.0-47.0); Hemoglobin 8.0 g/dL (12.0-16.0); Mean Corp Hgb Conc. 32.3 g/dL (33.0-37.0); Mean Corpuscular Volume 90.2 fL (81.0-99.0); Platelet Count 127 10^3/uL (130-400); Red Cell Dist. Width 15.0 % (11.5-14.5)
[2025-01-14 06:05] LABS: Blood Urea Nitrogen 28 mg/dl (7-17); Calcium 8.1 mg/dl (8.4-10.2); Carbon Dioxide 25 mmol/L (22-30); Chloride 106 mmol/L (98-107); Estimated Creatinine Clearance 64 ml/min; Glucose 120 mg/dl (70-99); Magnesium 2.5 mg/dl (1.6-2.3); Potassium 4.7 mmol/L (3.5-5.1); Sodium 135 mmol/L (135-145); eGFR > 60.00
[2025-01-14] MEDS: SYNTHROID 137 MCG PO (06:37)
[2025-01-14] MEDS: TYLENOL 1000 MG PO ×3 (06:37→21:36)
[2025-01-14] MEDS: DUONEB 3 ML INH ×4 (08:22→19:47)
[2025-01-14] MEDS: PULMICORT 0.5 MG INH ×2 (08:22→19:47)
--- NOTE | 2025-01-14 08:45 | PTCARENOTE ---
Assumed care of patient. Walking rounds completed with previous RN. Pt assessed while she was sitting in the chair. Pt alert and oriented x4. Denies pain, shortness of breath, and nausea. KELLEY with equal strength throughout. Standby assist to get
from chair to commode. Flat affect. Speaks and understands [place]. SR on tele with rates in the 60s-70s. BP 85/58. +click. Bilateral radial and DP pulses palpable. +1 generalized edema. Epicardial v-wire insulated. +click. POX 96% on 1L NC. Trialed
RA, POX 88-89%. Lungs diminished R>L, coarse. Productive moist cough with brown/dark red sputum. IS encouraged- 500mL achieved. Abdomen soft, round, nontender. +BM. +BS. Tolerating diet. Pt voiding tata urine in the commode. Right chest incision
approximated with skin glue, TIGRE. Bruising to left chest. Right groin incision approximated with skin glue, TIGRE. Old chest tube site covered, dressing CDI. Right IJ cordis intact infusing NSS KVO. Left AC 20g PIV intact infusing heparin gtt at
650units/hour. See MAR for medication administration. See worklist for complete nursing assessment. Plan of care reviewed and patient in agreement.
--- NOTE | 2025-01-14 08:50 | W.PN.CD ---
Today's Communication / Plan
-
Heart rates are stable.
Anticoagulation heparin to Coumadin as directed by primary team.
Postop anemia hemoglobin 8.0. Continue to monitor particularly with use of anticoagulation.
Patient with significant wheezing on exam coughing and decreased breath sounds at bases. She got underlying COPD. Pulmonary following earlier this admission. Rec would recommend reassessment by ethics manager.
Impression / Plan
-
I/P: 59F with hypertension, dyslipidemia, paroxysmal atrial fibrillation, hypothyroidism, and rheumatic mitral valve stenosis who presents for mitral valve replacement.
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
- Telemetry with sinus rhythm. No significant arrhythmias. No longer being paced
-sinus bradycardia first-degree AV block with MN interval of 222 on EKG 01/12/2025
- Post MITCHEL with preserved LVEF MG 2 mmHg
- Anticoagulation with Coumadin heparin being initiated by CT surgery
- Limited TTE prior to discharge
Postop anemia. Hemoglobin 8.2.
- Monitor closely particularly in this patient whose being maintained on anticoagulation.
ASD s/p closure
.
Wheezing/respiratory insufficiency/COPD
-History of severe COPD
- Wheezing bilaterally and coughing.
- Decreased breath sounds at bases.
- Continue optimization of COPD
- Pulmonary following this hospitalization would recommend reassessment.
Paroxysmal atrial fibrillation
- Sinus bradycardia VVI at 80
- She was on amiodarone preoperatively by her primary supervisor tank storage
- Oral Anticoagulation: She was on warfarin preoperatively
- [id number]: score 2 (HTN, female gender), MVR as above
Hypertension, now with hypotension, follow
.
Physical Exam
Vital Signs/Labs
Vital Signs
Temp Pulse Resp BP Pulse Ox
99.8 F 67 20 98/52 100
01/13/25 22:00 01/14/25 08:24 01/14/25 08:24 01/14/25 00:08 01/14/25 08:24
01/13/25 01/14/25 01/15/25
06:59 06:59 06:59
Actual Weight 73.4 kg 74.3 kg
01/14/25 05:27
01/14/25 05:27
PT 17.0 Sec (11.4-14.6) H 01/14/25 05:27
INR 1.35 01/14/25 05:27
APTT 68.5 Sec (23.4-35.0) H 01/14/25 05:27
Magnesium 2.5 mg/dl (1.6-2.3) H 01/14/25 05:27
Physical Exam
Constitutional: No acute distress
Cardiovascular: Rhythm & rate is regular, Systolic murmur present and Other (Mechanical S1)
Respiratory: Other (Wheezes bilaterally decreased breath sounds at bases. Patient currently receiving)
GI: Soft
Neuro/Psych: Alert
Data Reviewed
-
Date of Service: January 14, 2025
Medical Decision Making: Reviewed Test Results
Echo: Report Reviewed by me
Medical Tests (PFT, Pathology etc): Report Reviewed by me
Labs: Labs Reviewed by me
[2025-01-14] MEDS: CALCIUM GLUCONATE 130 MG IV (08:58)
[2025-01-14] MEDS: BACTROBAN 2% OINTMENT 1 APPLIC NASAL ×2 (08:58→20:19)
[2025-01-14] MEDS: LIDOCAINE 4% PATCH 1 PATCH TOPICAL (08:59)
[2025-01-14] MEDS: MAGNESIUM OXIDE PO ×2 (09:00→20:19)
[2025-01-14] MEDS: LASIX 60 MG IV ×2 (09:00→16:56)
[2025-01-14] MEDS: ROBITUSSIN 200 MG PO ×4 (09:00→21:37)
[2025-01-14] MEDS: PROTONIX 40 MG PO (09:00)
[2025-01-14] MEDS: LOW STRENGTH ASPIRIN 81 MG PO (09:00)
[2025-01-14] MEDS: KCL 20 MEQ PO ×2 (09:00→20:19)
[2025-01-14] MEDS: NEURONTIN 100 MG PO ×3 (09:00→21:37)
[2025-01-14] MEDS: SENOKOT-S PO ×2 (09:01→20:19)
[2025-01-14] MEDS: NSS IV (09:11)
--- NOTE | 2025-01-14 10:20 | W.PN.PUL3 ---
Today's Communication / Plan
-
Patient with splinting and what appears to be pleural effusions
Atelectasis versus pulm edema on chest x-ray
Wheezing improved following nebulizer treatment this morning
Continue with Pulmicort twice a day, DuoNebs 4 times daily
Patient with longstanding history of asthma
I suspect that diuresis will also help
Pulmonary will continue to follow
Assessment
-
Patient is a 59-year-old female with severe mitral stenosis and mitral regurgitation along with ASD due to underlying rheumatic heart disease, s/p mitral valve replacement, closure of ASD 01/11/2025
Patient extubated without difficulty, on nasal cannula
We have asked to reevaluate the patient for wheezing and shortness of breath on 01/14
CXR 01/14/2025 per my review with some improvement in aeration at the base but persistent bibasilar atelectasis and possibly bilateral pleural effusions
Plan/recommendations
At this time, patient appears to be comfortable
Per cardiology, some wheezing this morning.
Patient with splinting on today's exam
She does feel nebulized therapy helps her
For now, continue with Pulmicort twice a day, DuoNebs 4 times daily
She was on Breo and Spiriva, as an outpatient
This will be resumed post discharge
She has a history of asthma, followed at [facility]
Maintain supplement oxygen as needed
Aspiration precautions
Encouraged incentive spirometry, OOB/ambulation/early mobility
I do feel that her x-ray is more consistent with fluid, pleural effusions
Continues with diuresis
GI prophylaxis: Protonix
Other medical diagnoses:
- Pulmonary nodules with mediastinal/hilar lymphadenopathy. Needs out patient close monitoring. Patient reports that she follows up with the library media specialist at [facility] and is aware of pulmonary nodules and PET scan as outpatient.
- Renal mass, 8 mm, and T12 lytic lesion. Concerning for malignancy. Needs ongoing workup as outpatient. Updated CT surgery service regarding need for monitoring of these incidental findings as outpatient. I also printed the report, highlighted
the areas and given to the patient. Called patient's daughter Sarah Kerr and updated her about these findings and need for outpatient close workup.
- Mixed obstructive and restrictive lung disease. Needs full PFTs with Lung volumes, DLCO and Bronchodilator response assessment. Recommend resuming follow-up with her library media specialist at [facility].
- H/o Asthma. Continue Duoneb qid and Budesonide BID for now. Encourage incentive spirometry considering left lower lobe atelectasis. Resume montelukast 10 mg nightly. Patient can resume Breo at the time of discharge.
- Paroxysmal Atrial Fibrillation, had been on chronic anticoagulation with Coumadin, resumed
- ASD with L > R shunt. s/p closure
Subjective Data
-
Date of Service:
Date of Service: January 14, 2025
Subjective:
Patient had some wheezing and coughing earlier this morning. Presently she is feeling better. at the bedside. Patient was discharged on maintenance inhaler therapy 1 week prior to admission. Sitting in chair. Presently denies chest
pain, cough has improved with nebulized treatment
Objective Data
Data Reviewed
Vital Signs / I&O / Oxygen:
Vital Signs
Temp Pulse Resp BP Pulse Ox
98.1 F 72 20 85/58 96
01/14/25 08:00 01/14/25 09:00 01/14/25 08:24 01/14/25 08:48 01/14/25 09:00
Intake and Output
01/13/25 01/14/25 01/15/25
06:59 06:59 06:59
Intake Total 621.5 / 621.5 551.5 / 551.5 322.5 / 322.5
Output Total 635 / 635 550 / 550 675 / 675
Balance -13.5 / -13.5 1.5 / 1.5 -352.5 / -352.5
SaO2 [CPAP] 100
SaO2 [SIMV] 100
SaO2 96
Nasal Cannula flow liters per 1
minute
Physical Exam
General: Comfortable and Other (Right IJ)
HEENT: Normocephalic and Other (Large neck)
Cardiovascular: S1-S2, Regular Rhythm, Murmur (n) and Peripheral Edema (tr)
Respiratory: Clear, Wheeze (Minimal), Crackles (n), Rhonchi (n) and Other (Decreased at base)
GI: Soft, Non Distended and Non Tender
Neurology: Awake, Alert and No Motor Deficits (Generally weak)
Skin: Warm, Good Color, Jaundice (n) and Rash (n)
Labs/Micro/Reports
Lab Data
01/14/25 05:27
01/14/25 05:27
Laboratory Results
01/13/25 01/13/25 01/13/25
10:09 16:16 23:15
PT
INR
APTT 48.5 H 115.6 H 102.6 H
01/14/25
05:27
PT 17.0 H
INR 1.35
APTT 68.5 H
--- NOTE | 2025-01-14 12:00 | PTCARENOTE ---
Pt assisted OOB after echo. Pt voiding adequate amounts of clear yellow urine in the commode. SR with 1st degree AVB on tele with rates in the 70s. BP 106/59. POX 96% on 1L, titrated to RA, POX 93%. Heparin continues to infuse. No acute changes.
[2025-01-14 12:18] LABS: APTT 70.3 Sec (23.4-35.0)
[2025-01-14] MEDS: FERRLECIT 110 MG IV (13:44)
--- NOTE | 2025-01-14 14:22 | PN.CDI ---
CDI
- -
CDI:
Physician Documentation Request
Admit Date: 01/11/25 05:17
Dear Doctor/CVPA,
Please review the following and provide your response in the progress notes.
Clinical Indicators:
Pt admitted with Rheumatic mitral valve disease/insufficiency s/p MVR on 01/11
Progress note 01/14, ' Diurese more today. ...-Will diurese with Lasix...-LVEF 55-60% preop, 60-65% postop per intraop MITCHEL-Diastolic congestive heart failure...Respiratory: Decreased Breath Sounds (with mild expiratory wheezing and basilar
crackles)...Extremities: Other (+trace edema)...'
Pulmonary note 01/14, ' Patient with splinting and what appears to be pleural effusions Atelectasis versus pulm edema on chest x-ray...I do feel that her x-ray is more consistent with fluid, pleural effusions Continues with diuresis...'
Per AUG 31 & 01/14 IV Lasix 40 mg x1, 01/14 60 mg IV Lasix BID started
Please provide a diagnosis for the above findings/ IV Lasix use:
Acute on Chronic Diastolic CHF
Acute noncardiogenic pulmonary edema
Other ( please specify)
Use of terms such as suspected, likely, concern for, or probable (associated with a specific diagnosis that is being evaluated, monitored, or treated as if it exists) are acceptable and can be coded in the inpatient setting, when documented at the
time of discharge.
Thank you,
Deidra Chance RN
CDI Specialist
[place] text
Please use your independent medical judgment in providing your response.
[2025-01-14] MEDS: ROXICODONE 5 MG PO (15:04)
--- NOTE | 2025-01-14 15:26 | CM ---
CM following for DC planning needs.
I have reviewed initial assessment. Pt. resides w/ spouse in a private, multi level home. She is functionally indep. at baseline w/ ADLs, mobility without the use of any assisted device.
Antic. DC plan is for home w/ CT Transitional Care RN.
CM to follow.
--- NOTE | 2025-01-14 16:45 | PTCARENOTE ---
Pt reassessed. SR with 1st degree AVB with rates in the 70s-80s. BP 105/50. Pt rates back pain 2/10. POX 89% on RA, per CT MANAGER ERP, acceptable. Surgical sites stable. Heparin continues to infuse.
[2025-01-14] MEDS: SINGULAIR 10 MG PO (18:17)
[2025-01-14] MEDS: COUMADIN 7.5 MG PO (18:17)
[2025-01-14] MEDS: REMOVE LIDOCAINE PATCH 1 PATCH REMOVE (20:19)
--- NOTE | 2025-01-14 21:00 | PTCARENOTE ---
Assumed care of pt from dayshift RN. Walking rounds completed. Pt is AAOx3. Appropriate. SR w/ 1st degree AVB on the tele monitor. HR 80s. Temporary epicardial v-wire intact. BP stable. Toprol Xl added - see MAR. Palpable pulses throughout. +1
generalized edema. Pt 88-91% on RA. Pt placed on 1 L NC. Current POX 96%. Lung sounds diminished throughout. Occasional cough. Abdomen round. +BSx4. Pt voiding w/o issue. All surgical sites stable. PIV x1 intact. Heparin infusing as ordered. Pt
helped into bed w/ assistx1. See worklist for full nursing assessment and interventions. Call freeman within reach.
[2025-01-14] MEDS: TOPROL XL 12.5 MG PO (21:38)
[2025-01-15] VITALS (15 sets, daily range): BP systolic 101–134; BP diastolic 52–107; PULSE 76; O2SAT 96–98; BMI 30.7
--- NOTE | 2025-01-15 00:11 | PTCARENOTE ---
No acute change in assessment. Pt is SR w/ 1st degree AVB on the tele monitor. Temporary v-wire insulated and intact. BP stable. Pt on 1L NC. POX 96%. Occasional cough. No pain at this time. All surgical sites stable. Up as needed w/ assist x1 to
the bathroom. Call freeman within reach.
[2025-01-15 03:52] LABS: Hematocrit 21.3 % (37.0-47.0); Hemoglobin 7.0 g/dL (12.0-16.0); Mean Corp Hgb Conc. 32.9 g/dL (33.0-37.0); Mean Corpuscular Volume 88.0 fL (81.0-99.0); Platelet Count 138 10^3/uL (130-400); Red Cell Dist. Width 15.0 % (11.5-14.5)
--- NOTE | 2025-01-15 03:52 | PTCARENOTE ---
No acute change in assessment. VSS. Labs drawn and sent. Pt remains on 1 L NC. POX 94-96%. Call freeman within reach.
[2025-01-15 03:54] LABS: INR 1.24; PT 15.9 Sec (11.4-14.6)
[2025-01-15 03:56] LABS: APTT 70.5 Sec (23.4-35.0)
[2025-01-15 04:14] LABS: Blood Urea Nitrogen 23 mg/dl (7-17); Calcium 8.0 mg/dl (8.4-10.2); Carbon Dioxide 32 mmol/L (22-30); Chloride 102 mmol/L (98-107); Estimated Creatinine Clearance 71 ml/min; Glucose 103 mg/dl (70-99); Magnesium 2.0 mg/dl (1.6-2.3); Potassium 4.9 mmol/L (3.5-5.1); Sodium 131 mmol/L (135-145); eGFR > 60.00
--- NOTE | 2025-01-15 05:01 | W.PN.CT ---
Today's Communication / Plan
-
Plan:
-No major issues overnight. Hemodynamically and neurologically intact
-On Heparin to coumadin bridge, Heparin currently @ 650 units/hr, goal PTT of 60-90, INR 1.24, was 1.35 yesterday, got 7.5 mg Coumadin yesterday
-Amiodarone and BB has been on hold given postop bradycardia. HR in the 90's with ambulation, tolerated 12.5 mg of Toprol XL last night. Currently NSR @ 70 bpm
-Did not tolerate low dose Lopressor on 01/13, became bradycardic and hypotensive
-Cont. current meds (ASA, Levothyroxine, Duonebs, Pulmicort)
-Monitor h/h 7.0/21.3, was 8.0/24.8, although likely somewhat hemodiluted with wt is up 7 lbs from preop, will likely benefit from 1u PRBC with Lasix after, c/o lightheadedness when OOB
-Will diurese with Lasix and replete electrolytes
-F/U 2-view cxr
-Maintain temporary PW (will cut before d/c home)
-Encourage use of IS
-Wean off of O2 as tolerated, currently on 1L, O2 sats 94-95%; RA o2sats 89-90%, encourage use of IS (currently 500-750 mL)
-Cont. pulmonary toilet
-OOB into chair
-Ambulate
-Likely home tomorrow
Assessment / Plan
-
Assessment:
-S/P Right mini thoracotomy with right femoral artery and vein cannulation under MITCHEL guidance/ Chordal sparing mitral valve replacement ( On-X mechanical prosthesis)/ Closure of iatrogenic ASD, done primarily, by Dr. Cruz, 01/11/25, pod#4
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
-Hypertension
-Hyperlipidemia
-Prediabetes (hgb A1C 5.7)
-Class 1 obesity (BMI 30)
-PAF (on Coumadin @ home)
-Hypothyroidism
-Asthma
-Pulmonary nodules with mediastinal/hilar lymphadenopathy
-LVEF 55-60% preop, 60-65% postop per intraop MITCHEL
-Diastolic congestive heart failure
-Recent pneumonia
-Mixed obstructive and restrictive lung disease
-Renal mass, 8 mm, and T12 lytic lesion (concerning for malignancy)
-S/P Nasal polypectomy
-S/P tubal ligation
-S/P appendectomy
-Acute postop blood loss/Anemia (stable, no transfusion)
-Acute postop thrombocytopenia (stable, without active bleed)
-Intraop hemoptysis (trauma from ET-Tube vs from MITCHEL)
-Acute postop atelectasis
-Acute postop hypovolemia with subsequent hypervolemia
-Acute postop bradycardia
-Acute postop hyponatremia, 131
Discussed patient care with: Cardiology, Nursing, Respiratory Therapy, Pharmacy and Care Team
Subjective
Procedure
S/P Right mini thoracotomy with right femoral artery and vein cannulation under MITCHEL guidance/ Chordal sparing mitral valve replacement ( On-X mechanical prosthesis)/ Closure of iatrogenic ASD, done primarily, by Dr. Cruz, 01/11/25
-
Date of Service: January 15, 2025
Pt c/o productive cough and slight ligheadedness, otherwise feels well
Objective Data
-
Lab Results
01/15/25 03:31
01/15/25 03:31
PT 15.9 Sec (11.4-14.6) H 01/15/25 03:31
INR 1.24 01/15/25 03:31
APTT 70.5 Sec (23.4-35.0) H 01/15/25 03:31
Vital Signs
Vital Signs
Temp Pulse Resp BP Pulse Ox
97.7 F 73 18 101/56 96
01/15/25 03:19 01/15/25 03:19 01/15/25 03:19 01/15/25 03:18 01/15/25 03:19
CT Intake/Output/Weight
01/14/25 01/14/25 01/15/25
06:59 18:59 06:59
Intake Total 435.0 / 551.5 654.5 / 706.5 52.0 / 706.5
Output Total 100 / 550 1275 / 1825 550 / 1825
Balance 335.0 / 1.5 -620.5 / -1118.5 -498.0 / -1118.5
SaO2: 96 (1L)
Physical Exam
-
General: Awake, Oriented and AOx3
Cardiovascular: Regular rate & rhythm, No Murmurs, No Rub and No Gallop
Respiratory: Decreased Breath Sounds (at bases, otherwise clear)
Sternum: Stable
Incision: Clean, Dry, Intact and Dressing Intact
Extremities: Other (+trace edema)
Data Reviewed
-
Lab Results: Results Reviewed
Medications: Active Meds Reviewed
Chest X-Ray: Report Reviewed and Image Reviewed
ECG: Report Reviewed and Image Reviewed
[2025-01-15] MEDS: TYLENOL 1000 MG PO ×3 (05:50→21:03)
[2025-01-15] MEDS: SYNTHROID 137 MCG PO (05:50)
[2025-01-15] MEDS: LIDOCAINE 4% PATCH 1 PATCH TOPICAL (05:58)
[2025-01-15] MEDS: DUONEB 3 ML INH ×2 (07:13→11:12)
[2025-01-15] MEDS: PULMICORT 0.5 MG INH (07:14)
[2025-01-15] MEDS: SENOKOT-S PO (08:29)
[2025-01-15] MEDS: PROTONIX 40 MG PO (08:57)
[2025-01-15] MEDS: ROBITUSSIN 200 MG PO ×4 (08:58→21:03)
[2025-01-15] MEDS: LOW STRENGTH ASPIRIN 81 MG PO (08:58)
[2025-01-15] MEDS: BACTROBAN 2% OINTMENT 1 APPLIC NASAL (08:58)
[2025-01-15] MEDS: KCL 20 MEQ PO ×2 (08:58→20:57)
[2025-01-15] MEDS: NEURONTIN 100 MG PO ×3 (08:58→21:03)
--- NOTE | 2025-01-15 09:00 | PTCARENOTE ---
Patient received from night warehouse selector RN; AAOx3, responds spontaneously to RN and follows commands; SR with 1st AVB on monitor; VSS; Click present; Epicardial V-wire present but insulated; +2 generalized edema; +1 DP and +2 radial pulses; Shallow
respirations; SpO2 89-91% on RA - placed on 1L NC and SpO2 92-98%; Lungs diminished at bases and rhonchi heard throughout; Productive, occasional cough with bloody, brown sputum; BM this AM and laxative held; Patient frequently urinating clear,
yellow urine in bathroom; Surgical sites intact; PIV x2 - #20 LAC and #22 right forearm; heparin infusing - see nursing flowsheets for further information; Type and screen sent for blood transfusion; See nursing documentation for further details
[2025-01-15] MEDS: TOPROL XL 12.5 MG PO (09:42)
--- NOTE | 2025-01-15 10:14 | W.PN.UPDATE ---
Update Note
Progress Note Update
CDI Inquiry: Suspect acute on chronic diastolic heart failure in setting of post-operative hypervolemia with underlying severe obstructive lung disease.
--- NOTE | 2025-01-15 10:21 | W.PN.PUL.V3 ---
Today's Communication / Plan
-
Increase activity
Diuresis as tolerated
Nebulizers
Wean oxygen
Assessment
-
Patient is a 59-year-old female with severe mitral stenosis and mitral regurgitation along with ASD due to underlying rheumatic heart disease, s/p mitral valve replacement, closure of ASD 01/11/2025
Patient extubated without difficulty, on nasal cannula
We have asked to reevaluate the patient for wheezing and shortness of breath on 01/14
CXR 01/14/2025 per my review with some improvement in aeration at the base but persistent bibasilar atelectasis and possibly bilateral pleural effusions
Plan/recommendations
Respiratory status improving
Continue supplemental oxygen as needed-room air 89%-currently on 1 L
Continue Pulmicort twice daily
Continue DuoNebs-she was on Breo and Spiriva as an outpatient-resume at discharge-history of asthma followed at [facility]
Encouraged incentive spirometry and Acapella
Cardiology following-correspondence reviewed
Heparin conversion to Coumadin
Amiodarone per cardiology
Diuresis as tolerated
Monitor renal function, electrolytes, intake/output, lower extremity edema and weight
Replace electrolytes as needed
Monitor hemoglobin
Transfuse as needed-hemoglobin 7.0-to obtain 1 unit 01/15/2025 on time
Increase activity as allowed by surgery
DVT prophylaxis-on anticoagulation
GI prophylaxis: Protonix
Outpatient follow-up with pulmonary-[facility]
Other medical diagnoses:
- Pulmonary nodules with mediastinal/hilar lymphadenopathy. Needs out patient close monitoring. Patient reports that she follows up with the molder labels at [facility] and is aware of pulmonary nodules and PET scan as outpatient.
- Renal mass, 8 mm, and T12 lytic lesion. Concerning for malignancy. Needs ongoing workup as outpatient. Updated CT surgery service regarding need for monitoring of these incidental findings as outpatient. I also printed the report, highlighted
the areas and given to the patient. Called patient's daughter Sarah Kerr and updated her about these findings and need for outpatient close workup.
- Mixed obstructive and restrictive lung disease. Needs full PFTs with Lung volumes, DLCO and Bronchodilator response assessment. Recommend resuming follow-up with her molder labels at [facility].
- H/o Asthma. Continue Duoneb qid and Budesonide BID for now. Encourage incentive spirometry considering left lower lobe atelectasis. Resume montelukast 10 mg nightly. Patient can resume Breo at the time of discharge.
- Paroxysmal Atrial Fibrillation, had been on chronic anticoagulation with Coumadin, resumed
- ASD with L > R shunt. s/p closure
Subjective Data
-
Date of Service:
Date of Service: January 15, 2025
Chief Complaint: Pulmonary Follow Up and Dyspnea Follow Up
Subjective:
Out of bed in chair, feels 'better', minimal hemoptysis, no chest pain or abdominal pain
Review of Systems
General: Other (Per HPI)
Objective Data
Data Reviewed
Vital Signs / I&O:
Vital Signs
Temp Pulse Resp BP Pulse Ox
98.1 F 74 20 112/58 96
01/15/25 09:41 01/15/25 09:42 01/15/25 09:41 01/15/25 09:42 01/15/25 09:41
Intake and Output
01/14/25 01/15/25 01/16/25
06:59 06:59 06:59
Intake Total 551.5 / 551.5 726.0 / 726.0 199.5 / 199.5
Output Total 550 / 550 5 / 192
Balance 1.5 / 1.5 -1199.0 / -1199.0 199.5 / 199.5
SaO2: 96
Nasal Cannula flow liters per minute: 1
Physical Exam
General: Respiratory Distress (n), Comfortable and Other (Right IJ)
HEENT: Normocephalic and Other (Large neck)
Cardiovascular: Regular Rhythm, Murmur (n) and Peripheral Edema (tr)
Respiratory: Clear, Wheeze (Minimal), Crackles (n), Rhonchi (n) and Other (Decreased at base)
GI: Soft, Non Distended and Non Tender
Neurology: Awake, Alert and No Motor Deficits (Generally weak)
Skin: Warm, Good Color, Cyanosis (n), Jaundice (n) and Rash (n)
Labs/Micro/Reports
Lab Data
01/15/25 03:31
01/15/25 03:31
Laboratory Results
01/14/25 01/15/25
11:50 03:31
PT 15.9 H
INR 1.24
APTT 70.3 H 70.5 H
[2025-01-15] MEDS: NSS IV (10:33)
[2025-01-15] MEDS: LASIX 60 MG IV ×2 (10:48→17:03)
--- NOTE | 2025-01-15 12:46 | PTCARENOTE ---
1 unit of PRBC's ordered and given - VSS throughout and no complications noted; IV Lasix 60 mg given following blood transfusion; Patient resting comfortably in chair at this time
--- NOTE | 2025-01-15 16:49 | W.PN.CD ---
Today's Communication / Plan
-
appreciate pulmonary recs
cont. diuresis in setting of bleed transfusion
Impression / Plan
-
I/P: 59F with hypertension, dyslipidemia, paroxysmal atrial fibrillation, hypothyroidism, and rheumatic mitral valve stenosis who presents for mitral valve replacement.
Outpatient life skills specialist: Dr. Aguilar
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
- Telemetry with sinus rhythm. No significant arrhythmias. No longer being paced
- sinus bradycardia first-degree AV block with [place] interval of 222 on EKG 01/12/2025
- Post MITCHEL with preserved LVEF MG 2 mmHg
- Anticoagulation with Coumadin heparin being initiated by CT surgery
- Limited TTE 01/14/2025 with stable valve function, normal EF
Postop anemia. Hemoglobin 8.2 --> 7.0
- given 1U pRBC
- no signs of active bleeding
- 60 IV Lasix BID
- Monitor closely particularly in this patient whose being maintained on anticoagulation.
ASD s/p closure
Wheezing/respiratory insufficiency/COPD, improving
-History of severe COPD
-Wheezing bilaterally and coughing, noted yesterday, seen by pulmonary and now improved with nebs / pulm toilet
Paroxysmal atrial fibrillation
- Sinus bradycardia VVI at 80
- She was on amiodarone preoperatively by her primary life skills specialist, held now in setting of bradycardia
- Oral Anticoagulation: She was on warfarin preoperatively, currently heparin bridge
- [id number]: score 2 (HTN, female gender), MVR as above
Hypertension, now with hypotension, follow
TTE 01/14/2025
Normal biventricular size and systolic function without regional wall motion
abnormality. LVEF 60-65%.
Well-seated mechanical prosthetic mitral valve with normal gradients (peak/mean
8/3 mmHg). HR 72 bpm.
No mitral regurgitation.
Small pericardial effusion without evidence of hemodynamic compromise.
Study is unchanged compared to intraoperative MITCHEL at the end of mitral valve
replacement on 01/11/2025.
.
Physical Exam
Vital Signs/Labs
Vital Signs
Temp Pulse Resp BP Pulse Ox
37.4 C 78 18 133/75 98
01/15/25 16:48 01/15/25 12:00 01/15/25 16:48 01/15/25 11:10 01/15/25 16:48
01/14/25 01/15/25 01/16/25
06:59 06:59 06:59
Actual Weight 74.3 kg 73.6 kg
01/15/25 03:31
01/15/25 03:31
PT 15.9 Sec (11.4-14.6) H 01/15/25 03:31
INR 1.24 01/15/25 03:31
APTT 70.5 Sec (23.4-35.0) H 01/15/25 03:31
Magnesium 2.0 mg/dl (1.6-2.3) 01/15/25 03:31
Physical Exam
Constitutional: Comfortable
Cardiovascular: Rhythm & rate is regular
Respiratory: Respiratory effort normal
Neuro/Psych: AO x 3
Data Reviewed
-
Date of Service: January 15, 2025
Medical Decision Making: Reviewed Test Results
Labs: Labs Reviewed by me
[2025-01-15] MEDS: HEPARIN 25000 UNITS/250 ML IV (17:03)
[2025-01-15] MEDS: SINGULAIR 10 MG PO (17:03)
[2025-01-15] MEDS: COUMADIN 10 MG PO (17:43)
--- NOTE | 2025-01-15 18:19 | PTCARENOTE ---
2 view CXR completed; Another dose of IV Lasix given as ordered - patient urinating frequently in bathroom; Oxygen weaned to room air - SpO2 90-92%; Patient resting comfortably in chair
[2025-01-15] MEDS: LASIX 20 MG IV (20:57)
[2025-01-15] MEDS: REMOVE LIDOCAINE PATCH 1 PATCH REMOVE (20:57)
[2025-01-15] MEDS: SENOKOT-S 1 TABLET PO (20:57)
--- NOTE | 2025-01-15 21:30 | PTCARENOTE ---
Assumed care of pt from dayshift RN. Walking rounds completed. Pt assisted from the chair to the bed w/ minimal assist. SR w/ 1st degree AVB on the tele monitor. HR 70s. BP stable. Palpable pulses throughout. Trace generalized edema. Pt is on RA.
POX 92-93%. Lung sounds diminished throughout. Productive cough. Deep breathing and IS encouraged. Abdomen soft. +BS x4. Pt voiding w/o issue. PIV x3 intact. All surgical sites stable. Heparin infusing as ordered. See worklist for full nursing
assessment and interventions. Call freeman within reach.
[2025-01-16] VITALS (13 sets, daily range): BP systolic 83–134; BP diastolic 58–81; PULSE 75; O2SAT 94–98; BMI 30.1
[2025-01-16] MEDS: VENTOLIN NEBULES 2.5 MG INH ×3 (00:29→17:37)
--- NOTE | 2025-01-16 00:33 | PTCARENOTE ---
Pt reassessed. SR w/ 1st AVB on the tele monitor. HR 70s. BP stable. Pt 91% on RA. Respiratory at bedside for breathing treatment. Pt c/o trouble breathing. Pt voiding. All surgical sites stable. Call freeman within reach.
[2025-01-16 03:40] LABS: INR 1.34; PT 16.8 Sec (11.4-14.6)
[2025-01-16 03:42] LABS: Hematocrit 25.8 % (37.0-47.0); Hemoglobin 8.6 g/dL (12.0-16.0); Mean Corp Hgb Conc. 33.3 g/dL (33.0-37.0); Mean Corpuscular Volume 87.8 fL (81.0-99.0); Platelet Count 150 10^3/uL (130-400); Red Cell Dist. Width 15.2 % (11.5-14.5)
--- NOTE | 2025-01-16 03:51 | PTCARENOTE ---
Pt reassessed. SR w/ 1st degree AVB on the tele monitor. HR 70s. VSS. Pt is currently 97% on 1 L NC. Pt states breathing has improved. Labs drawn and sent. Pt repositioned in bed. Call freeman within reach.
[2025-01-16 03:57] LABS: APTT 69.3 Sec (23.4-35.0)
[2025-01-16 03:58] LABS: Blood Urea Nitrogen 18 mg/dl (7-17); Calcium 7.9 mg/dl (8.4-10.2); Carbon Dioxide 31 mmol/L (22-30); Chloride 99 mmol/L (98-107); Estimated Creatinine Clearance 71 ml/min; Glucose 99 mg/dl (70-99); Magnesium 2.1 mg/dl (1.6-2.3); Potassium 4.5 mmol/L (3.5-5.1); Sodium 131 mmol/L (135-145); eGFR > 60.00
[2025-01-16] MEDS: SYNTHROID 137 MCG PO (05:06)
[2025-01-16] MEDS: CALCIUM GLUCONATE 290 MG IV (05:06)
[2025-01-16] MEDS: TYLENOL 1000 MG PO ×3 (05:06→22:04)
[2025-01-16] MEDS: LIDOCAINE 4% PATCH 1 PATCH TOPICAL (05:06)
--- NOTE | 2025-01-16 06:42 | W.PN.CT ---
Today's Communication / Plan
-
Plan:
-No major issues overnight. Hemodynamically and neurologically intact
-On Heparin to coumadin bridge, Heparin currently @ 650 units/hr, goal PTT of 60-90, INR 1.34, was 1.24 yesterday, got 10 mg Coumadin yesterday
-Amiodarone and BB has been on hold given postop bradycardia. HR in the 90's with ambulation, tolerating 12.5 mg of Toprol XL. Currently NSR @ 71 bpm
-Did not tolerate low dose Lopressor on 01/13, became bradycardic and hypotensive
-Cont. current meds (ASA, Levothyroxine, Duonebs, Pulmicort)
-Received 1u PRBC for h/h 7.0/21.3 yesterday 01/16, h/h 8.6/25.8 today, wt is up 4 lbs from preop
-Will diurese with Lasix and replete electrolytes
-Maintain temporary PW (will cut before d/c home)
-Encourage use of IS
-Wean off of O2 as tolerated, currently on RA, O2 sats 88-92%, encourage use of IS (currently 500-750 mL)
-Cont. pulmonary toilet
-OOB into chair
-Ambulate
-Likely home tomorrow
Assessment / Plan
-
Assessment:
-S/P Right mini thoracotomy with right femoral artery and vein cannulation under MITCHEL guidance/ Chordal sparing mitral valve replacement ( On-X mechanical prosthesis)/ Closure of iatrogenic ASD, done primarily, by Dr. Cruz, 01/11/25, pod#5
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
-Hypertension
-Hyperlipidemia
-Prediabetes (hgb A1C 5.7)
-Class 1 obesity (BMI 30)
-PAF (on Coumadin @ home)
-Hypothyroidism
-Asthma
-Pulmonary nodules with mediastinal/hilar lymphadenopathy
-LVEF 55-60% preop, 60-65% postop per intraop MITCHEL
-Diastolic congestive heart failure
-Recent pneumonia
-Mixed obstructive and restrictive lung disease
-Renal mass, 8 mm, and T12 lytic lesion (concerning for malignancy)
-S/P Nasal polypectomy
-S/P tubal ligation
-S/P appendectomy
-Acute postop blood loss/Anemia (stable, no transfusion)
-Acute postop thrombocytopenia (stable, without active bleed)
-Intraop hemoptysis (trauma from ET-Tube vs from MITCHEL)
-Acute postop atelectasis
-Acute postop hypovolemia with subsequent hypervolemia
-Acute postop bradycardia
-Acute postop hyponatremia, 131
Discussed patient care with: Cardiology, Nursing, Respiratory Therapy, Pharmacy and Care Team
Subjective
Procedure
S/P Right mini thoracotomy with right femoral artery and vein cannulation under MITCHEL guidance/ Chordal sparing mitral valve replacement ( On-X mechanical prosthesis)/ Closure of iatrogenic ASD, done primarily, by Dr. Cruz, 01/11/25
-
Date of Service: January 16, 2025
Pt c/o productive cough, otherwise feels well
Objective Data
-
Lab Results
01/16/25 03:20
01/16/25 03:20
PT 16.8 Sec (11.4-14.6) H 01/16/25 03:20
INR 1.34 01/16/25 03:20
APTT 69.3 Sec (23.4-35.0) H 01/16/25 03:20
Vital Signs
Vital Signs
Temp Pulse Resp BP Pulse Ox
98.5 F 71 16 110/58 89
01/16/25 03:14 01/16/25 06:00 01/16/25 03:14 01/16/25 05:18 01/16/25 06:00
CT Intake/Output/Weight
01/15/25 01/15/25 01/16/25
06:59 18:59 06:59
Intake Total 71.5 / 726.0 1081.5 / 1133.5 52.0 / 1133.5
Output Total 650 / 1925 1875 / 3125 1250 / 3125
Balance -578.5 / -1199.0 -793.5 / -1991.5 -1198.0 / -1991.5
SaO2: 91 (RA)
Physical Exam
-
General: Awake, Oriented and AOx3
Cardiovascular: Regular rate & rhythm, No Murmurs, No Rub and No Gallop
Respiratory: Decreased Breath Sounds (at bases with mild expiratory wheezing)
Sternum: Stable
Incision: Clean, Dry, Intact and Dressing Intact
Extremities: Other (+trace edema )
Data Reviewed
-
Lab Results: Results Reviewed
Medications: Active Meds Reviewed
Chest X-Ray: Report Reviewed and Image Reviewed
ECG: Report Reviewed and Image Reviewed
[2025-01-16] MEDS: SENOKOT-S 1 TABLET PO ×2 (07:52→19:22)
[2025-01-16] MEDS: KCL 20 MEQ PO ×2 (07:52→19:22)
[2025-01-16] MEDS: PROTONIX 40 MG PO (07:52)
[2025-01-16] MEDS: ROBITUSSIN 200 MG PO ×4 (07:52→22:04)
[2025-01-16] MEDS: TOPROL XL 12.5 MG PO (07:52)
[2025-01-16] MEDS: NEURONTIN 100 MG PO ×2 (07:52→15:30)
[2025-01-16] MEDS: LASIX 60 MG IV (07:52)
[2025-01-16] MEDS: LOW STRENGTH ASPIRIN 81 MG PO (07:52)
[2025-01-16] MEDS: NSS IV (07:53)
--- NOTE | 2025-01-16 08:05 | PTCARENOTE ---
assumed care of pt from previous shift RN, sinus rhythm on tele, VSS. Epicardial wire insulated. + peripheral pulses, trace edema to bilateral lower extremities. Lungs diminished w occasional expiratory wheeze. Coughing and deep breathing
encouraged. Pox 88-93% on RA. +bs, tolerating PO intake, voids spontaneously. Dressing removed from right klateral surgical site, ecchymosis to right breast. Pt states pain well controlled. Plan of care reviewed w the pt and questions encouraged.
DRIPS: Heparin 350 units/hr
--- NOTE | 2025-01-16 09:54 | W.PN.PUL.V3 ---
Today's Communication / Plan
-
Oxygen wean
Increase activity
Hemoglobin stable
Gentle diuresis
Heparin bridge to Coumadin
Respiratory status stable-pulmonary will sign off-please call with questions
Assessment
-
Patient is a 59-year-old female with severe mitral stenosis and mitral regurgitation along with ASD due to underlying rheumatic heart disease, s/p mitral valve replacement, closure of ASD 01/11/2025
Patient extubated without difficulty, on nasal cannula
We have asked to reevaluate the patient for wheezing and shortness of breath on 01/14
CXR 01/14/2025 per my review with some improvement in aeration at the base but persistent bibasilar atelectasis and possibly bilateral pleural effusions
Plan/recommendations
Respiratory status continues to improve-oxygen supplementation weaned to room air
Continue Pulmicort twice daily
Continue DuoNebs-she was on Breo and Spiriva as an outpatient-resume at discharge-history of asthma followed at [facility]
Continue to encourage incentive spirometry and Acapella
Cardiology following-correspondence reviewed
Heparin conversion to Coumadin
Amiodarone per cardiology
Did not tolerate [id number] and hypotension
Diuresis continues as tolerated
Monitor renal function, electrolytes, intake/output, lower extremity edema and weight
Replace electrolytes as needed
Monitor hemoglobin
Transfuse as needed-hemoglobin 7.0 on 01/15/2025--obtained 1 unit 01/15/2025-hemoglobin now 8.6
Increase activity as allowed by surgery
DVT prophylaxis-on anticoagulation
GI prophylaxis: Protonix
Stable respiratory status-pulmonary will sign off-please call with questions
Outpatient follow-up with pulmonary-[facility]
Other medical diagnoses:
- Pulmonary nodules with mediastinal/hilar lymphadenopathy. Needs out patient close monitoring. Patient reports that she follows up with the remote sensing technologist at [facility] and is aware of pulmonary nodules and PET scan as outpatient.
- Renal mass, 8 mm, and T12 lytic lesion. Concerning for malignancy. Needs ongoing workup as outpatient. Updated CT surgery service regarding need for monitoring of these incidental findings as outpatient. I also printed the report, highlighted
the areas and given to the patient. Called patient's daughter Sarah Kerr and updated her about these findings and need for outpatient close workup.
- Mixed obstructive and restrictive lung disease. Needs full PFTs with Lung volumes, DLCO and Bronchodilator response assessment. Recommend resuming follow-up with her remote sensing technologist at [facility].
- H/o Asthma. Continue Duoneb qid and Budesonide BID for now. Encourage incentive spirometry considering left lower lobe atelectasis. Resume montelukast 10 mg nightly. Patient can resume Breo at the time of discharge.
- Paroxysmal Atrial Fibrillation, had been on chronic anticoagulation with Coumadin, resumed
- ASD with L > R shunt. s/p closure
Subjective Data
-
Date of Service:
Date of Service: January 16, 2025
Chief Complaint: Pulmonary Follow Up and Dyspnea Follow Up
Subjective:
She feels improved, no complaints of shortness of breath, chest pain, mucus production, weaned to room air
Review of Systems
General: Other (Per HPI)
Objective Data
Data Reviewed
Vital Signs / I&O:
Vital Signs
Temp Pulse Resp BP Pulse Ox
98.8 F 73 20 134/81 93
01/16/25 07:18 01/16/25 08:00 01/16/25 07:18 01/16/25 07:18 01/16/25 08:19
Intake and Output
01/15/25 01/16/25 01/17/25
06:59 06:59 06:59
Intake Total 726.0 / 726.0 1133.5 / 1133.5 6.5 / 6.5
Output Total 1925 / 1925 3125 / 3125 600 / 600
Balance -1199.0 / -1199.0 -1991.5 / -1991.5 -593.5 / -593.5
SaO2: 93
Nasal Cannula flow liters per minute: 1
Physical Exam
General: Respiratory Distress (n), Comfortable and Other (Right IJ)
HEENT: Normocephalic and Other (Large neck)
Cardiovascular: Regular Rhythm, Murmur (n) and Peripheral Edema (tr)
Respiratory: Clear, Wheeze (Minimal), Crackles (n), Rhonchi (n) and Other (Decreased at base)
GI: Soft, Non Distended and Non Tender
Neurology: Awake, Alert and No Motor Deficits (Generally weak)
Skin: Warm, Good Color, Cyanosis (n), Jaundice (n) and Rash (n)
Labs/Micro/Reports
Lab Data
01/16/25 03:20
01/16/25 03:20
Laboratory Results
01/16/25
03:20
PT 16.8 H
INR 1.34
APTT 69.3 H
--- NOTE | 2025-01-16 10:20 | W.PN.CD ---
Today's Communication / Plan
-
- Agree holding Amio for now. Resume later, perhaps at just 200 mg daily
Impression / Plan
-
Background: 59F with hypertension, dyslipidemia, paroxysmal atrial fibrillation, hypothyroidism, and rheumatic mitral valve stenosis who presents for mitral valve replacement.
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 Aguilar
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
- Telemetry with sinus rhythm. No significant arrhythmias. No longer being paced
- sinus bradycardia first-degree AV block with HI interval of 222 on EKG 01/12/2025
- Post MITCHEL with preserved LVEF MG 2 mmHg
- Anticoagulation with Coumadin heparin being initiated by CT surgery
- Limited TTE 01/14/2025 with stable valve function, normal EF
Postop anemia. Hemoglobin 8.2 --> 7.0
- Transfused
ASD s/p closure
History of severe COPD, stable
Paroxysmal atrial fibrillation
- Sinus bradycardia, backup pacing available. Now HR improved
- Agree holding Amio for now. Resume later, perhaps at just 200 mg daily
- Oral Anticoagulation: She was on warfarin preoperatively, currently heparin bridge
- [id number]: score 2 (HTN, female gender), MVR as above
Hypertension
Subjective: Feels OK.
TTE 01/14/2025
Normal biventricular size and systolic function without regional wall motion
abnormality. LVEF 60-65%.
Well-seated mechanical prosthetic mitral valve with normal gradients (peak/mean
8/3 mmHg). HR 72 bpm.
No mitral regurgitation.
Small pericardial effusion without evidence of hemodynamic compromise.
Study is unchanged compared to intraoperative MITCHEL at the end of mitral valve
replacement on 01/11/2025.
.
Physical Exam
Vital Signs/Labs
Vital Signs
Temp Pulse Resp BP Pulse Ox
98.8 F 73 20 134/81 93
01/16/25 07:18 01/16/25 08:00 01/16/25 07:18 01/16/25 07:18 01/16/25 09:57
01/15/25 01/16/25 01/17/25
06:59 06:59 06:59
Actual Weight 73.6 kg 72.2 kg
01/16/25 03:20
01/16/25 03:20
PT 16.8 Sec (11.4-14.6) H 01/16/25 03:20
INR 1.34 01/16/25 03:20
APTT 69.3 Sec (23.4-35.0) H 01/16/25 03:20
Magnesium 2.1 mg/dl (1.6-2.3) 01/16/25 03:20
Physical Exam
Constitutional: No acute distress
EENT: Anicteric
Cardiovascular: Rhythm & rate is regular and Pedal edema is absent
Respiratory: Respiratory effort normal and Rhonchi Present
GI: Soft
Data Reviewed
-
Date of Service: January 16, 2025
[2025-01-16] MEDS: BUMEX 2 MG IV (13:10)
--- NOTE | 2025-01-16 14:18 | CM ---
CM following for DC planning needs.
Met w/ patient at bedside. Patient is POD# 5. She reports that she is feeling well.
Reviewed DC plan for home w/ CT Transitional Care RN.
CM to cont. to follow.
--- NOTE | 2025-01-16 15:45 | PTCARENOTE ---
Pt received back from IR s/p right thoracentesis with 350mL dark red fluid as per IR RN. Pt ambulated from stretcher to bathroom to void clear yellow urine. SR with 1st degree AVB on tele with rates in the 80s. BP 110/65. POX 92% on RA. Pt alert and
oriented x4. Denies pain at rest, only with coughing. Frequent productive cough with juarez sputum. IS encouraged-500mL achieved, acapella encouraged. Abdomen soft, round, nontender. +BS. Surgical sites stable. PIV x3 intact. Heparin gtt infusing at
650units/hour. Pt's at bedside.
[2025-01-16] MEDS: HEPARIN 25000 UNITS/250 ML IV (17:39)
[2025-01-16] MEDS: FLEXERIL 5 MG PO (17:40)
[2025-01-16] MEDS: SINGULAIR 10 MG PO (17:40)
[2025-01-16] MEDS: COUMADIN 10 MG PO (17:41)
[2025-01-16] MEDS: ROXICODONE 5 MG PO (19:21)
[2025-01-16] MEDS: REMOVE LIDOCAINE PATCH 1 PATCH REMOVE (19:22)
--- NOTE | 2025-01-16 20:45 | PTCARENOTE ---
Assumed care of pt from daystamft RN. Walking rounds completed. Pt is AAOx3. SR w/ 1st degree AVB on the tele monitor. HR 70s. BP stable. Palpable pulses throughout. +1 B/L ankle edema. Pt on RA. POX 92%. Lung sounds diminished. Right base more
diminished compared to left. + productive cough. Deep breathing and IS encouraged. No c/o SOB or trouble breathing at this time. Abdomen soft. +BS x4. Pt voiding w/o issue. All surgical sites stable. PIV's intact. Heparin infusing as ordered. See
worklist for full nursing assessment and interventions. See MAR for pain medication administration. Pt assisted from the chair to the bed. Call freeman within reach.
[2025-01-16] MEDS: NEURONTIN 300 MG PO (22:03)
--- NOTE | 2025-01-16 23:26 | PTCARENOTE ---
Pt reassessed. Remains SR w/ 1st degree AVB on the tele monitor. HR 70s. BP stable. Pt 90-92% on RA. All surgical sites stable. PTT drawn and sent. Pt repositioned in bed. Call freeman within reach.
[2025-01-16 23:40] LABS: APTT 77.8 Sec (23.4-35.0)
[2025-01-17] VITALS (10 sets, daily range): BP systolic 98–134; BP diastolic 63–71; PULSE 75; O2SAT 92–94; BMI 29.5
--- NOTE | 2025-01-17 03:19 | PTCARENOTE ---
Pt remains SR w/ 1st degree AVB on the tele monitor. HR 70s. BP stable. Pt 88-93% on RA. Pt currently 96% on 1 L NC. Labs sent. Pt repositioned. Call freeman within reach.
[2025-01-17 03:36] LABS: Hematocrit 27.3 % (37.0-47.0); Hemoglobin 9.1 g/dL (12.0-16.0); Mean Corp Hgb Conc. 33.3 g/dL (33.0-37.0); Mean Corpuscular Volume 88.3 fL (81.0-99.0); Platelet Count 188 10^3/uL (130-400); Red Cell Dist. Width 15.5 % (11.5-14.5)
--- NOTE | 2025-01-17 03:53 | W.PN.CT ---
Today's Communication / Plan
-
-s/p IR for R thoracentesis, 350 cc out
-On Heparin to coumadin bridge, Heparin currently @ 850 units/hr, goal PTT increased to 90-110, INR 1.63, s/p 10 mg Coumadin yesterday
-Amiodarone and BB has been on hold given postop bradycardia. HR in the 90's with ambulation, tolerating 12.5 mg of Toprol XL. Currently NSR @ 71 bpm
-Cont. current meds (ASA, Levothyroxine, Duonebs, Pulmicort)
-Will diurese with Lasix and replete electrolytes
-Maintain temporary PW (will cut before d/c home)
-Encourage use of IS
-Wean off of O2 as tolerated, currently on RA, O2 sats 88-92%, encourage use of IS (currently 500-750 mL)
-Cont. pulmonary toilet
-OOB into chair
-Ambulate
-DC planning
Assessment / Plan
-
Assessment:
-S/P Right mini thoracotomy with right femoral artery and vein cannulation under MITCHEL guidance/ Chordal sparing mitral valve replacement ( On-X mechanical prosthesis)/ Closure of iatrogenic ASD, done primarily, by Dr. Cruz, 01/11/25, pod#6
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
-Hypertension
-Hyperlipidemia
-Prediabetes (hgb A1C 5.7)
-Class 1 obesity (BMI 30)
-PAF (on Coumadin @ home)
-Hypothyroidism
-Asthma
-Pulmonary nodules with mediastinal/hilar lymphadenopathy
-LVEF 55-60% preop, 60-65% postop per intraop MITCHEL
-Diastolic congestive heart failure
-Recent pneumonia
-Mixed obstructive and restrictive lung disease
-Renal mass, 8 mm, and T12 lytic lesion (concerning for malignancy)
-S/P Nasal polypectomy
-S/P tubal ligation
-S/P appendectomy
-Acute postop blood loss/Anemia (stable, no transfusion)
-Acute postop thrombocytopenia (stable, without active bleed)
-Intraop hemoptysis (trauma from ET-Tube vs from MITCHEL)
-Acute postop atelectasis
-Acute postop hypovolemia with subsequent hypervolemia
-Acute postop bradycardia
-Acute postop hyponatremia, 131
Subjective
Procedure
S/P Right mini thoracotomy with right femoral artery and vein cannulation under MITCHEL guidance/ Chordal sparing mitral valve replacement ( On-X mechanical prosthesis)/ Closure of iatrogenic ASD, done primarily, by Dr. Cruz, 01/11/25
-
Date of Service: January 17, 2025
Objective Data
-
Lab Results
01/17/25 03:09
PT 16.8 Sec (11.4-14.6) H 01/16/25 03:20
INR 1.34 01/16/25 03:20
APTT 77.8 Sec (23.4-35.0) H 01/16/25 23:16
Vital Signs
Vital Signs
Temp Pulse Resp BP Pulse Ox
98.1 F 73 16 114/70 93
01/17/25 03:00 01/17/25 03:00 01/17/25 03:00 01/17/25 02:59 01/17/25 03:00
CT Intake/Output/Weight
01/16/25 01/16/25 01/17/25
06:59 18:59 06:59
Intake Total 52.0 / 1133.5 152.0 / 222.5 70.5 / 222.5
Output Total 1250 / 3125 1950 / 0 100 / 2049
Balance -1198.0 / -1991.5 -1798.0 / -1827.5 -29.5 / -1827.5
SaO2: 93
Physical Exam
-
General: Awake, Oriented and AOx3
Cardiovascular: Regular rate & rhythm
Respiratory: Clear and Equal
Sternum: Stable
Incision: Clean, Dry and Intact
Extremities: No Edema and No Erythema
Data Reviewed
-
Lab Results: Results Reviewed
Medications: Active Meds Reviewed
Chest X-Ray: Report Reviewed
ECG: Report Reviewed
[2025-01-17 03:54] LABS: Blood Urea Nitrogen 19 mg/dl (7-17); Calcium 8.3 mg/dl (8.4-10.2); Carbon Dioxide 30 mmol/L (22-30); Chloride 99 mmol/L (98-107); Estimated Creatinine Clearance 63 ml/min; Glucose 92 mg/dl (70-99); Magnesium 1.9 mg/dl (1.6-2.3); Potassium 4.4 mmol/L (3.5-5.1); Sodium 131 mmol/L (135-145); eGFR > 60.00
[2025-01-17] MEDS: TYLENOL 1000 MG PO ×3 (06:25→21:52)
[2025-01-17] MEDS: SYNTHROID 137 MCG PO (06:25)
[2025-01-17 06:39] LABS: INR 1.63; PT 19.9 Sec (11.4-14.6)
[2025-01-17 06:41] LABS: APTT 116.8 Sec (23.4-35.0)
[2025-01-17] MEDS: ROBITUSSIN 200 MG PO ×4 (08:01→21:52)
[2025-01-17] MEDS: LIDOCAINE 4% PATCH 1 PATCH TOPICAL (08:01)
[2025-01-17] MEDS: TOPROL XL 12.5 MG PO (08:02)
[2025-01-17] MEDS: LOW STRENGTH ASPIRIN 81 MG PO (08:02)
[2025-01-17] MEDS: KCL 20 MEQ PO ×2 (08:02→19:46)
[2025-01-17] MEDS: NSS IV (08:02)
[2025-01-17] MEDS: PROTONIX 40 MG PO (08:02)
[2025-01-17] MEDS: NEURONTIN 300 MG PO ×3 (08:02→21:52)
[2025-01-17] MEDS: SENOKOT-S 1 TABLET PO ×2 (08:02→19:46)
--- NOTE | 2025-01-17 08:40 | W.PN.CD ---
Today's Communication / Plan
-
respiratory status improved
diuresed back to baseline weight
nearing discharge
Impression / Plan
-
Background: 59F with hypertension, dyslipidemia, paroxysmal atrial fibrillation, hypothyroidism, and rheumatic mitral valve stenosis who presents for mitral valve replacement.
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
Rheumatic mixed mitral stenosis/regurgitation s/p mechanical aortic valve replacement ( [place] mechanical mitral valve prosthesis)
- Telemetry with sinus rhythm. No significant arrhythmias. No longer being paced
- sinus bradycardia first-degree AV block with HI interval of 222 on EKG 01/12/2025
- Post MITCHEL with preserved LVEF MG 2 mmHg
- Anticoagulation with heparin bridge to warfarin
- Limited TTE 01/14/2025 with stable valve function, normal EF
Postop anemia. Hemoglobin 8.2 --> 7.0
- Transfused
ASD s/p closure
History of severe COPD, stable
Paroxysmal atrial fibrillation
- Sinus bradycardia, backup pacing available. Now HR improved
- Agree holding Amio for now. Resume later, perhaps at just 200 mg daily
- Oral Anticoagulation: She was on warfarin preoperatively, currently heparin bridge
- [id number]: score 2 (HTN, female gender), MVR as above
Hypertension
Subjective: Feels OK. Breathing significantly improved
TTE 01/14/2025
Normal biventricular size and systolic function without regional wall motion
abnormality. LVEF 60-65%.
Well-seated mechanical prosthetic mitral valve with normal gradients (peak/mean
8/3 mmHg). HR 72 bpm.
No mitral regurgitation.
Small pericardial effusion without evidence of hemodynamic compromise.
Study is unchanged compared to intraoperative MITCHEL at the end of mitral valve
replacement on 01/11/2025.
.
Physical Exam
Vital Signs/Labs
Vital Signs
Temp Pulse Resp BP Pulse Ox
36.7 C 73 16 114/70 90
01/17/25 03:00 01/17/25 06:00 01/17/25 03:00 01/17/25 02:59 01/17/25 06:00
01/16/25 01/17/25 01/18/25
06:59 06:59 06:59
Actual Weight 72.2 kg 70.7 kg
01/17/25 03:09
01/17/25 03:09
PT 19.9 Sec (11.4-14.6) H 01/17/25 06:22
INR 1.63 01/17/25 06:22
APTT 116.8 Sec (23.4-35.0) H 01/17/25 06:22
Magnesium 1.9 mg/dl (1.6-2.3) 01/17/25 03:09
Physical Exam
Constitutional: Comfortable
Cardiovascular: Rhythm & rate is regular
Respiratory: Respiratory effort normal
Neuro/Psych: AO x 3
Data Reviewed
-
Date of Service: January 17, 2025
Medical Decision Making: Reviewed Test Results
Labs: Labs Reviewed by me
--- NOTE | 2025-01-17 10:19 | PTCARENOTE ---
assumed care of pt from previous shift RN, sinus rhythm on tele, VSS. Epicardial wire insulated. + peripheral pulses, trace edema to bilateral lower extremities. Lungs diminished w occasional expiratory wheeze. Coughing and deep breathing
encouraged. Pox 88-93% on RA. +bs, tolerating PO intake, voids spontaneously.Right lateral surgical site TIGRE, ecchymosis to right breast. Pt states pain well controlled. Plan of care reviewed w the pt and questions encouraged.
DRIPS: Heparin 850 units/hr
[2025-01-17 12:42] LABS: INR 1.79; PT 21.3 Sec (11.4-14.6)
--- NOTE | 2025-01-17 12:49 | PTCARENOTE ---
VSS, sinus rhythm on tele, heparin gtt maintained.
--- NOTE | 2025-01-17 15:04 | CM ---
CM following for DC planning needs.
Reviewed DC plan. DC plan remains for home w/ CT Transitional Care RN.
CM to cont. to follow.
[2025-01-17] MEDS: COUMADIN 10 MG PO (16:41)
[2025-01-17] MEDS: SINGULAIR 10 MG PO (16:41)
--- NOTE | 2025-01-17 16:49 | PTCARENOTE ---
pt walked the halls w assistance, VSS.
[2025-01-17] MEDS: REMOVE LIDOCAINE PATCH 1 PATCH REMOVE (19:46)
--- NOTE | 2025-01-17 20:14 | PTCARENOTE ---
Patient received from RN @ 1900. Patient sitting in chair comfortably w/ call freeman in reach. AOx3. NSR BP 107/63 HR 76. Heart sounds audible w/ click. Lower bilateral trace edema noted. Radial and pedal pulses present. V-wires insulated.
Lung valdez diminished throughout. Productive cough with thick juarez secretions. IS 750. POX 94% RA. Voiding clear yellow urine. Bowel sounds normoactive. All surgical sites C/D/I. Left arm PIV's patent and intact. Heparin infusing per
protocol. See worklist for more details.
[2025-01-17 20:25] LABS: INR 1.81; PT 21.5 Sec (11.4-14.6)
[2025-01-17] MEDS: HEPARIN 25000 UNITS/250 ML IV (22:00)
--- NOTE | 2025-01-17 23:00 | PTCARENOTE ---
report received from previous RN, walking rounds done. pt sleeping. VSS. NSR on monitor, HR 70s. epicardial V wire intact and insulated. POX 93% on room air. +BS. voids spontaneously. PIV intact and patent. all surgical sites stable. Heparin gtt
infusing @ 850u/kg/hr. see worklist for full assessment, VS, and interventions.
[2025-01-17] MEDS: ROXICODONE 5 MG PO (23:43)
[2025-01-18] MEDS: DILAUDID 0.25 MG IV (02:14)
[2025-01-18 04:30] VITALS: BP 106/73
--- NOTE | 2025-01-18 04:40 | PTCARENOTE ---
no changes in assessment, VSS. NSR 70s. POX 93% on room air. AM labs drawn and sent. pt resting comfortably in chair.
[2025-01-18 04:52] LABS: Hematocrit 28.4 % (37.0-47.0); Hemoglobin 9.4 g/dL (12.0-16.0); Mean Corp Hgb Conc. 33.1 g/dL (33.0-37.0); Mean Corpuscular Volume 88.8 fL (81.0-99.0)
[2025-01-18 04:53] LABS: Platelet Count 210 10^3/uL (130-400); Red Cell Dist. Width 15.9 % (11.5-14.5)
[2025-01-18 05:02] LABS: INR 1.95; PT 22.7 Sec (11.4-14.6)
[2025-01-18 05:10] LABS: Blood Urea Nitrogen 17 mg/dl (7-17); Calcium 8.1 mg/dl (8.4-10.2); Carbon Dioxide 27 mmol/L (22-30); Chloride 101 mmol/L (98-107); Estimated Creatinine Clearance 70 ml/min; Glucose 91 mg/dl (70-99); Potassium 4.7 mmol/L (3.5-5.1); Sodium 131 mmol/L (135-145); eGFR > 60.00
[2025-01-18] MEDS: SYNTHROID 137 MCG PO (05:35)
[2025-01-18] MEDS: TYLENOL 1000 MG PO (05:35)
[2025-01-18 05:49] LABS: APTT 124.2 Sec (23.4-35.0)
[2025-01-18] MEDS: COUMADIN 2.5 MG PO (06:11)
--- NOTE | 2025-01-18 08:38 | W.PN.CT ---
Today's Communication / Plan
-
-pod #7
-no issues overnight
-INR 1.95 today. Gave 2.5 mg this am and will check INR at noon
-PTT 124.2 this am - decreased iv Heparin from 850 to 800 units/hr
-continue current meds
-enocurage IS
Assessment / Plan
-
Assessment:
-S/P Right mini thoracotomy with right femoral artery and vein cannulation under MITCHEL guidance/ Chordal sparing mitral valve replacement ( On-X mechanical prosthesis)/ Closure of iatrogenic ASD, done primarily, by Dr. Cruz, 01/11/25, pod#7
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
-Hypertension
-Hyperlipidemia
-Prediabetes (hgb A1C 5.7)
-Class 1 obesity (BMI 30)
-PAF (on Coumadin @ home)
-Hypothyroidism
-Asthma
-Pulmonary nodules with mediastinal/hilar lymphadenopathy
-LVEF 55-60% preop, 60-65% postop per intraop MITCHEL
-Diastolic congestive heart failure
-Recent pneumonia
-Mixed obstructive and restrictive lung disease
-Renal mass, 8 mm, and T12 lytic lesion (concerning for malignancy)
-S/P Nasal polypectomy
-S/P tubal ligation
-S/P appendectomy
-Acute postop blood loss/Anemia (stable, no transfusion)
-Acute postop thrombocytopenia (stable, without active bleed)
-Intraop hemoptysis (trauma from ET-Tube vs from MITCHEL)
-Acute postop atelectasis
-Acute postop hypovolemia with subsequent hypervolemia
-Acute postop bradycardia
-Acute postop hyponatremia, 131
Discussed patient care with: Nursing and Care Team
Subjective
Procedure
S/P Right mini thoracotomy with right femoral artery and vein cannulation under MITCHEL guidance/ Chordal sparing mitral valve replacement ( On-X mechanical prosthesis)/ Closure of iatrogenic ASD, done primarily, by Dr. Cruz, 01/11/25
-
Date of Service: January 18, 2025
Objective Data
-
Lab Results
01/18/25 04:37
01/18/25 04:37
PT 22.7 Sec (11.4-14.6) H 01/18/25 04:37
INR 1.95 01/18/25 04:37
APTT 124.2 Sec (23.4-35.0) H 01/18/25 04:37
APTT Cancelled 01/18/25 04:37
Vital Signs
Vital Signs
Temp Pulse Resp BP Pulse Ox
98.5 F 76 18 106/73 93
01/18/25 04:30 01/18/25 04:30 01/18/25 04:30 01/18/25 04:30 01/18/25 04:30
CT Intake/Output/Weight
01/17/25 01/18/25 01/18/25
18:59 06:59 18:59
Intake Total 17.0 / 25.5 8.5 / 25.5
Output Total 850 / 925 75 / 925
Balance -833.0 / -899.5 -66.5 / -899.5
SaO2: 93
Physical Exam
-
General: Awake, Oriented and AOx3
Cardiovascular: Regular rate & rhythm
Respiratory: Clear and Equal
Sternum: Stable
Incision: Clean, Dry and Intact
Extremities: No Edema and No Erythema
Data Reviewed
-
Lab Results: Results Reviewed
Medications: Active Meds Reviewed
Chest X-Ray: Report Reviewed and Image Reviewed
ECG: Report Reviewed and Image Reviewed
[2025-01-18 08:57] VITALS: BP 107/66
[2025-01-18] MEDS: SENOKOT-S 1 TABLET PO (08:57)
[2025-01-18] MEDS: KCL 20 MEQ PO (08:57)
[2025-01-18] MEDS: TOPROL XL 12.5 MG PO (08:57)
[2025-01-18] MEDS: PROTONIX 40 MG PO (08:57)
[2025-01-18] MEDS: LOW STRENGTH ASPIRIN 81 MG PO (08:57)
[2025-01-18] MEDS: NEURONTIN 300 MG PO (08:57)
[2025-01-18] MEDS: ROBITUSSIN 200 MG PO (08:57)
[2025-01-18] MEDS: LIDOCAINE 4% PATCH TOPICAL (08:58)
[2025-01-18] MEDS: NSS IV (08:58)
--- NOTE | 2025-01-18 09:47 | W.PN.CD ---
Today's Communication / Plan
-
continue current medications
d/w CTNP, would give neb/inhaler
Impression / Plan
-
Background: 59F with hypertension, dyslipidemia, paroxysmal atrial fibrillation, hypothyroidism, and rheumatic mitral valve stenosis who presents for mitral valve replacement.
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 Aguilar
Rheumatic mixed mitral stenosis/regurgitation s/p mechanical aortic valve replacement ( [place] mechanical mitral valve prosthesis)
- Telemetry with sinus rhythm. No significant arrhythmias. No longer being paced
- sinus bradycardia first-degree AV block with [place] interval of 222 on EKG 01/12/2025
- Post MITCHEL with preserved LVEF MG 2 mmHg
- Anticoagulation with heparin bridge to warfarin
- Limited TTE 01/14/2025 with stable valve function, normal EF
Postop anemia. Hemoglobin 8.2 --> 7.0
- Transfused now at 9.4
ASD s/p closure
History of severe COPD, stable
Paroxysmal atrial fibrillation
- Sinus bradycardia, backup pacing available. Now HR improved
- Agree holding Amio for now.
- Oral Anticoagulation: She was on warfarin preoperatively, currently heparin bridge
- [id number]: score 2 (HTN, female gender), MVR as above
Hypertension
RAD: she has a bit an end exp wheeze
Subjective: Feels OK. Some SOB with walking.
TTE 01/14/2025
Normal biventricular size and systolic function without regional wall motion
abnormality. LVEF 60-65%.
Well-seated mechanical prosthetic mitral valve with normal gradients (peak/mean
8/3 mmHg). HR 72 bpm.
No mitral regurgitation.
Small pericardial effusion without evidence of hemodynamic compromise.
Study is unchanged compared to intraoperative MITCHEL at the end of mitral valve
replacement on 01/11/2025.
.
Physical Exam
Vital Signs/Labs
Vital Signs
Temp Pulse Resp BP Pulse Ox
98.5 F 76 18 106/73 93
01/18/25 04:30 01/18/25 04:30 01/18/25 04:30 01/18/25 04:30 01/18/25 08:41
01/17/25 01/18/25 01/19/25
06:59 06:59 06:59
Actual Weight 155 lb 13.869 oz 158 lb 8.198 oz
01/18/25 04:37
01/18/25 04:37
PT 22.7 Sec (11.4-14.6) H 01/18/25 04:37
INR 1.95 01/18/25 04:37
APTT 124.2 Sec (23.4-35.0) H 01/18/25 04:37
APTT Cancelled 01/18/25 04:37
Magnesium 1.9 mg/dl (1.6-2.3) 01/17/25 03:09
Physical Exam
Constitutional: No acute distress
Cardiovascular: Rhythm & rate is regular, Pedal edema is absent, JVD pressure is normal, Systolic murmur absent and Diastolic murmur absent
Respiratory: Respiratory effort normal and Wheeze Present (end exp squeak)
Neuro/Psych: AO x 3
Data Reviewed
-
Date of Service: January 18, 2025
Medical Decision Making: Review of Case with other Provider (CTNP would give breathing treatment)
[2025-01-18 11:58] LABS: INR 2.15; PT 24.1 Sec (11.4-14.6)
[2025-01-18 12:00] LABS: APTT 77.9 Sec (23.4-35.0)
--- NOTE | 2025-01-18 13:40 | W.DCSUMMARY ---
Addendum entered and electronically signed by RAMO Meza 01/22/25 07:23:
completed 01/18/25
Original Note:
Discharge Summary
Discharge Data
Date of Admission: 01/11/25
Date of Discharge: 01/18/25
-
Pending Results: No
Hospital Course
Primary care physician: Homero Stanton
Outpatient anesthesiology technologist: Ang Aguilar
Inpatient consultants: [facility] Cardiology, pulmonary nurse administrator
Procedures:
1. mitral valve replacement, primary closure of strial septal defect
Primary Diagnosis:
1. rheumatic mitral stenosis s/p balloon valvuloplasty (2023)
Secondary Diagnoses:
1. Hypertension
2. Hyperlipidemia
3. Prediabetes (hgb A1C 5.7)
4. Class 1 obesity (BMI 30)
5. PAF (on Coumadin @ home)
6. Hypothyroidism
7. Asthma
8. Pulmonary nodules with mediastinal/hilar lymphadenopathy (incidental finding on CT scan)
9. Diastolic heart failure
10. Recent pneumonia
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
12. Renal mass, 8 mm, and T12 lytic lesion (concerning for malignancy-incidental finding on CT scan)
13. S/P Nasal polypectomy
14. S/P tubal ligation
15. S/P appendectomy
16. Acute postop blood loss/Anemia
17. Acute postop thrombocytopenia (stable, without active bleed)
18. Intraop hemoptysis (trauma from ET-Tube vs from MITCHEL)
19. Acute postop atelectasis
20. Acute postop hypovolemia with subsequent hypervolemia
21. Acute postop bradycardia
22. Acute postop hyponatremia, 131
23. Acute postop righ pleural effusion s/p thoracentesis (01/16/25)
24. iatrogenic atrial septal defect
HPI: 59 year old female electively admitted 01/11/25 for mitral replacement due to rheumatic mixed mitral stenosis/regurgitation. Had recent hospital admission for pneumonia
Hospital course: Patient was taken to the operating room and underwent chordal sparing mitral valve replacement ( On-X mechanical), primary closure of iatrogenic ASD by Dr. Zhao Cruz. Post procedure MITCHEL reported an EF�55-60% and MV mean
2mmHg. Patient received no intraoperative blood products and returned to CVICU on insulin, and Precedex. Anesthesia reported bloody secretions in the operating room possibly from MITCHEL probe, which resolved on arrival to CVICU. Patient noted to have
sinus bradycardia rhythm, which did not improve with VVI pacing. Amiodarone and beta-ruslan were held. Patient was extubated at 1615 on the day of surgery. IV heparin was initiated and Coumadin 5 mg given on postoperative day #1. On
postoperative day #2, INR was 1.15 and Coumadin 5 mg given. Patient was diuresed with 40 mg of IV Lasix. Patient remained in sinus bradycardia rhythm. A follow-up TTE was completed on 01/14 and reported an EF of 60 to 65% with well-seated mitral
valve (peak/mean gradients 8/3 mmHg), no MR, small pericardial effusion. Toprol XL 12.5 mg daily was added as rhythm remained stable sinus rhythm. Patient required 1 PRBC transfusion for hemoglobin of 7.0 on postoperative day #4. Patient underwent
interventional radiology right thoracentesis for 350 cc fluid on postoperative day #5.Patient continued with Coumadin dosing 7.5>10>10mg with INR 1.95 on postoperative day #7. Coumadin 2.5 mg given in the morning with repeat INR at 12 noon showing
an INR of 2.15. IV heparin was discontinued. The temporary bipolar ventricular wire was clipped to skin level. Patient deemed stable for discharge per review with surgeon. The pulmonary nurse administrator reviewed incidental CT findings of groundglass
opacities in the right with 4 mm lytic lesion of T12 and 8 mm left renal mass with patient and left report for family to follow-up with tiffanie Harrison dressage judge. Patient will receive her usual home dose of 7.5 mg tonight followed by 10 mg
Coumadin on Tuesday and Tuesday with transitional nurse visit on Tuesday. Patient has home Coumadin monitoring device. Further adjustments to be determined per Dr. Aguilar.
Home medication changes:
Toprol XL 50 mg decreased to 12.5 mg daily
Hold olmesartan
Hold amiodarone
Warfarin 10 mg daily on Tuesday and Tuesday this week, hold warfarin 2.5 mg until INR obtained on Tuesday, then further dosing per Dr. Agarwal. Usually takes warfarin 7.5mg q V-Fp-Fkcc-Tue and Coumadin 2.5-5mg q -Tue-Tue
Discharge Plan
-
Patient Disposition: Home (Routine Discharge)
Discharge Diagnosis/Procedures: mechanical mitral valve replacement; closure of atrial septal defect (01/11)
Condition: Good
Diet: No restrictions
Activity: No strenuous activity
Driving Restrictions: Not until seen by your Dr
Bathing Restrictions: OK to Shower
Other Services: Cardiac Rehab
Specialty Instructions: Weigh Daily- Call MD for wt gain/loss 3 lbs overnight/5 lbs in 1 week
Referrals:
CT Transitional Care Nurse [Outside]
Referral Note: The Cardiothoracic Transitional Care Nurse will call you to set up a visit in 1-2 days.
Elizabeth Posada MD [Active, Pulmonary Medicine]
Referral Note: 3 mo Pulmonary at [facility] or at
Homero Stanton MD [Family Provider, Internal Medicine]
Tony Aguilar MD [Active, Cardiology] - 03/06/25 11:00 am
Zhao Cruz MD [Active, Cardiac Surgery] - 02/11/25 1:15 pm
Prescriptions:
New
aspirin 81 mg Tablet,Chewable
81 mg PO DAILY Qty: 0 0RF
cyclobenzaprine 10 mg Tablet
5 mg PO Q8HPRN PRN (Reason: muscle spasm) Qty: 10 0RF
warfarin 10 mg tablet
10 mg PO SUTUTHSA Qty: 3 0RF
Rx Instructions:
start 01/19
acetaminophen 325 mg Tablet
650 mg PO Q4HPRN PRN (Reason: mild pain,headache,temp >101F ) Qty: 0 0RF
gabapentin 300 mg Capsule
300 mg PO TID Qty: 30 0RF
metoprolol succinate 25 mg Tablet Extended Release 24 Hr
12.5 mg PO DAILY Qty: 30 1RF
oxycodone 5 mg Tablet
2.5 mg PO Q4HPRN PRN (Reason: severe pain) Qty: 10 0RF
Continued
levothyroxine 137 mcg Tablet
137 mcg PO DAILY
amiodarone 200 mg Tablet
200 mg PO DAILY
warfarin 7.5 mg Tablet
7.5 mg PO MOTUTHFR
montelukast 10 mg Tablet
10 mg PO DAILY
furosemide 20 mg Tablet
20 mg PO DAILY
albuterol sulfate 90 mcg/actuation Hfa Aerosol Inhaler
1 inh INHALATION PRN PRN (Reason: shortness of breath)
levocetirizine 5 mg Tablet
5 mg PO DAILY
fluticasone furoate-vilanterol [Breo Ellipta] 100-25 mcg/dose Blister With Device
1 inh INHALATION DAILY
Discontinued
warfarin 2.5 mg Tablet
2.5 - 5 mg PO SUWESA
amlodipine 2.5 mg Tablet
2.5 mg PO DAILY
olmesartan 40 mg Tablet
40 mg PO DAILY
metoprolol succinate 50 mg Capsule,Sprinkle,Er 24hr
50 mg PO DAILY
Discharge Orders:
Discharge Patient (As Directed); Ordered 01/18/25
Ordered By: Aracelis Rowell
Care Plan Goals
Care Plan Goals:
Problem: Readiness for enhanced knowledge related to diagnosis and treatment plan
Goal: Understand your diagnosis and treatment plan needs, including medications if applicable.
Instructions: Know your diagnosis, underlying causes and treatment plan options, including medications if applicable. Consult with your health care team to learn about your diagnosis and treatment plan, including medications if applicable.
Discharge Date and Time
Discharge Date/Time: 01/18/25 15:45
Print Language: ROMANSH
[2025-01-18 14:08] VITALS: BP 107/58
[2025-01-18 14:14] VITALS: BP 143/71
[2025-01-18 14:20] VITALS: BP 107/58; BP 143/72; PULSE 79; O2SAT 94; O2SAT 97
--- NOTE | 2025-01-18 14:39 | W.PN.UPDATE ---
Update Note
Progress Note Update
No pacing required since surgery. 2 ventricular wires clipped at skin level.
[2025-01-18 15:28] VITALS: BP 116/67
--- NOTE | 2025-01-18 15:45 | PTCARENOTE ---
PT daughter at bedside during Discharge; all medications and upcoming appointments discussed and understood; vitals taken; IV's x2 removed; PT dressed and taken by wheelchair to awaiting vehicle.
== END 2025-01-18 15:45 | disposition home or self-care (01) | DRG 219 ==
LOC: CVICU 05:17
PROVIDERS: Anesthesiology; Nurse Practitioner; Physician Assistant Medical; Radiology Vascular & Interventional Radiology; ADMITTING PHYSICIAN Thoracic Surgery (Cardiothoracic Vascular Surgery); CONSULT PHYSICIAN Internal Medicine; FAMILY PHYSICIAN Internal Medicine
PROC: 02RG0JZ Replacement of Mitral Valve with Synthetic Substitute, Open Approach (ICD-10-PCS; 2025-01-11)
PROC: B24BZZ4 Ultrasonography of Heart with Aorta, Transesophageal (ICD-10-PCS; 2025-01-11)
PROC: 5A1221Z Performance of Cardiac Output, Continuous (ICD-10-PCS; 2025-01-11)
PROC: 30233N1 Transfusion of Nonautologous Red Blood Cells into Peripheral Vein, Percutaneous Approach (ICD-10-PCS; 2025-01-15)
PROC: 0W993ZZ Drainage of Right Pleural Cavity, Percutaneous Approach (ICD-10-PCS; 2025-01-16)
DX: I05.2 Rheumatic mitral stenosis with insufficiency (principal); I50.33 Acute on chronic diastolic (congestive) heart failure; D62 Acute posthemorrhagic anemia; J91.8 Pleural effusion in other conditions classified elsewhere; R04.2 Hemoptysis; J98.11 Atelectasis; E87.1 Hypo-osmolality and hyponatremia; I11.0 Hypertensive heart disease with heart failure; E78.5 Hyperlipidemia, unspecified; R00.1 Bradycardia, unspecified; J44.89 Other specified chronic obstructive pulmonary disease; E03.9 Hypothyroidism, unspecified; I48.0 Paroxysmal atrial fibrillation; R59.0 Localized enlarged lymph nodes; R91.1 Solitary pulmonary nodule; N28.89 Other specified disorders of kidney and ureter; J98.4 Other disorders of lung; R73.03 Prediabetes; D69.59 Other secondary thrombocytopenia; E86.1 Hypovolemia; E66.811 Obesity, class 1; Z68.30 Body mass index [BMI] 30.0-30.9, adult; Z79.01 Long term (current) use of anticoagulants; Z79.899 Other long term (current) drug therapy; Z87.01 Personal history of pneumonia (recurrent)
CPT/HCPCS: 32555; 36415; 71045; 71046; 71275; 74174; 80048; 80053; 81003; 81015; 82248; 82330; 82565; 82805; 82810; 82947; 82962; 83036; 83735; 84132; 84302; 84520; 85014; 85018; 85025; 85027; 85049; 85610; 85730; 86850; 86900; 86901; 86920; 87070; 87086; 88305; 93005; 93308; 93312; 93320; 93321; 93325; 94002; 94010; 94060; 94640; J2916; P9016; P9047; Q9967